=== PATIENT | male | born 1970 | race Caucasian/White ===

== ENCOUNTER → 2018-03-09 | Outpatient (CLI) | payer MEDICARE, OTHER ==
[2016-01-24 00:12] VITALS: BP 134/86
[~2018-03-09] MED LIST: ALBU8.5H6 IH; CYCL-331 PO; HYDR-2758 PO; HYDR-971 PO; KETO10TA PO; LEVO750T31 PO; LISI-334 PO; OXYC-323 PO; OXYC-328 PO; PRED20TA PO; SIMV20TA3 PO
--- NOTE | 2018-03-09 12:42 | RAD ---
2 views left knee 03/09/2018 2:00 AM Indication: LEG AND BACK PAIN Comparison: None Findings: There is no fracture or dislocation identified. Articular surfaces are uninterrupted. Soft tissues are unremarkable. Impression: No evidence of acute osseous abnormality
--- NOTE | 2018-03-09 12:43 | RAD ---
2 views left hip 03/09/2018 2:00 AM Indication: LEG AND BACK PAIN Comparison: None Findings: There is no fracture or dislocation identified. Articular surfaces are uninterrupted. Soft tissues are unremarkable. Impression: No evidence of acute osseous abnormality
--- NOTE | 2018-03-09 12:49 | RAD ---
4 views of the lumbar spine 03/09/2018 Indication: Back pain Comparison study: None Findings: Hypoplastic ribs appear to be present at the T 12 level. No evidence of acute fracture or alignment abnormality is identified. Vertebral body heights are preserved. There is diffuse disc space narrowing most prominent at L4-L5 and L5-S1. There is facet arthrosis at these levels. There is a grade 1 retrolisthesis of L4 on L5. Posterior projecting osteophyte noted. Findings could result in neural foraminal narrowing at L4-L5 and L5-S1. Given degree of facet arthrosis, some component of spinal stenosis may be present. Impression: No acute osseous abnormality is identified. Degenerative changes of the lumbar spine as described most prominent at L4-L5 and L5-S1. Consider MRI for further evaluation if clinical concern persists.
== END | disposition home or self-care (01) ==
LOC: PMG 12:05
PROVIDERS: ATTEND Physician Assistant
DX: M48.07 Spinal stenosis, lumbosacral region (principal); M25.78 Osteophyte, vertebrae; M25.562 Pain in left knee; M25.552 Pain in left hip
CPT/HCPCS: 72100; 73502; 73560

== ENCOUNTER 2018-03-10 18:44 | Emergency (ER) | payer MEDICARE, OTHER ==
[~2018-03-10] VITALS: Ht 185.4 cm; Wt 152.9 kg
[~2018-03-10 18:44] MED LIST changes: -CYCL-331 PO; -HYDR-2758 PO
--- NOTE | 2018-03-10 21:15 | RAD ---
Indication: Trauma. Lower back tenderness and pain. TECHNIQUE: CT lumbar spine without IV contrast with multiplanar reformats. COMPARISON: None FINDINGS: There are 5 lumbar type vertebral bodies. No compression deformities. Facet joints are in normal anatomic alignment. Moderate-sized anterior osteophytes are seen at L1-L2 and L3-L4. Segmental analysis: L1-L2: Mild circumferential disc bulge flattening anterior thecal sac. Mild bilateral facet arthropathy. No neuroforamina narrowing. L2-L3: Mild circumferential disc bulge flattening intrathecal sac. Mild bilateral facet arthropathy. No neuroforamina narrowing. L3-L4: Mild circumferential disc bulge flattening intrathecal sac. No facet arthropathy. Moderate right and left neuroforamina narrowing. L4-L5: Circumferential disc bulge with superimposed left paracentral disc protrusion narrowing spinal canal. Mild bilateral facet arthropathy. Severe left and moderate right neuroforamina narrowing. L5-S1: No disc bulge or herniation. Mild bilateral facet arthropathy. Severe left and moderate right neuroforamina narrowing. No acute fractures. Visualized soft tissues in the abdomen and pelvis are within normal limits. IMPRESSION: 1. No acute fractures. 2. Multilevel degenerative disc disease causing varying amount of neuroforaminal narrowing as described above. Electronically signed by: Rony Alvarez DO (03/10/2018 9:12 PM) [facility]
--- NOTE | 2018-03-10 21:40 | ED.ADGEN ---
Past History Past Medical History: COPD, Sinusitis, Other Past Surgical History: No Surgical History Smoking: Cigarettes Alcohol Use: None Drug Use: None Adult General HPI HPI Patient is a 47 yo male who states he missed his step at home and fell down 8 stairs. he fell to his right knee then to his back against the stair. he has known bulging disks and DDD. he denies being on narcotics. he was able to stand and walk to car. no leg weakness, no change in sensation Review of Systems Review of Systems Constitutional: Denies fever or chills [] Eyes: Denies change in visual acuity, redness, or eye pain [] HENT: Denies nasal congestion or sore throat [] Respiratory: Denies cough or shortness of breath [] Cardiovascular: No additional information not addressed in HPI [] GI: Denies abdominal pain, nausea, vomiting, bloody stools or diarrhea [] : Denies dysuria or hematuria [] Musculoskeletal:pain in lumbar spine and right knee Integument: Denies rash or skin lesions [] Neurologic: Denies headache, focal weakness or sensory changes [] Endocrine: Denies polyuria or polydipsia [] All other systems were reviewed and found to be within normal limits, except as documented in this note. Current Medications Current Medications Current Medications Medications (Trade) Dose Ordered Sig/Radha Start Time Stop Time Status Last Admin Dose Admin Fentanyl Citrate (Fentanyl 2ml Vial) 75 mcg 1X ONCE 03/10/18 20:15 03/10/18 20:16 DC 03/10/18 20:20 75 MCG Allergies Allergies Allergies Coded Allergies Type Severity Reaction Last Updated Verified Penicillins Allergy Severe anaphylaxis 12/05/15 Yes Physical Exam Physical Exam Constitutional: Well developed, well nourished, no acute distress, non-toxic appearance. [] HENT: Normocephalic, atraumatic, bilateral external ears normal, oropharynx moist, no oral exudates, nose normal. [] Eyes: PERRLA, EOMI, conjunctiva normal, no discharge. [] Neck: Normal range of motion, no tenderness, supple, no stridor. no midline pain Cardiovascular:Heart rate regular rhythm, no murmur [] Lungs & Thorax: Bilateral breath sounds clear to auscultation [] Abdomen: Bowel sounds normal, soft, no tenderness, no masses, no pulsatile masses. [] Skin: Warm, dry, no erythema, no rash. [] Back: tender along the entire lumbar spine. no cervical or thoracic pain Extremities: no edema, no swelling of right knee. no ecchymosis. full ROM of right knee. no crepitus with flexion/extension. 2/4 patellar reflexes. normal pedal pulses. cap refill <2 sec Neurologic: Alert and oriented X 3, normal motor function, normal sensory function, no focal deficits noted. [] Psychologic: Affect normal, judgement normal, mood normal. [] Current Patient Data Vital Signs Vital Signs Date Time Temp Pulse Resp B/P (MAP) Pulse Ox O2 Delivery O2 Flow Rate FiO2 03/10/18 20:20 20 96 Room Air EKG EKG [] Radiology/Procedures Radiology/Procedures [] Course & Med Decision Making Course & Med Decision Making Pertinent Labs and Imaging studies reviewed. (See chart for details) no fractures seen. he has a pcp that he is following for his back. he will see him in 2 weeks. he knows to return if trouble urinating or having bowel movements, weakness or decreased sensation. hydrocodone for pain and flexeril for relaxation [] Final Impression Final Impression muscle spasm due to fall[] Problems: Dragon Disclaimer Dragon Disclaimer This electronic medical record was generated, in whole or in part, using a voice recognition dictation system. Departure Time of Disposition: 21:39 Condition: STABLE Patient Instructions: Muscle Strain Additional Instructions: ice back and knee. hydrocodone for pain, ibuprofen for inflammation. flexeril for relaxation. return if symptoms worsen. see your doctor in 2 weeks Prescriptions hydrocodone and flexeril SHA DELACRUZ MD Mar 10, 2018 21:40
[2018-03-10] MEDS ORDERED: HYDR-2758 PO (21:42)
[2018-03-10] MEDS ORDERED: CYCL-331 PO (21:44)
[2018-03-10 21:50] VITALS: BP 130/76
--- NOTE | 2018-03-11 08:54 | RAD ---
3 views of each knee 03/10/2018 10:04 PM Indication: RIGHT KNEE PAIN AFTER FALL Comparison: None Findings: There is no fracture or dislocation identified. Articular surfaces are uninterrupted. Soft tissues are unremarkable. Impression: No evidence of acute osseous abnormality
== END 2018-03-10 21:50 | disposition home or self-care (01) ==
LOC: ER 18:44
DX: M62.830 Muscle spasm of back (principal); M25.561 Pain in right knee; J44.9 Chronic obstructive pulmonary disease, unspecified; F17.210 Nicotine dependence, cigarettes, uncomplicated; Z88.0 Allergy status to penicillin; W10.8XXA Fall (on) (from) other stairs and steps, initial encounter; Y93.89 Activity, other specified; Y99.8 Other external cause status; Y92.89 Other specified places as the place of occurrence of the external cause
CPT/HCPCS: 72131; 73562; 96372; 99284; J3010

== ENCOUNTER → 2018-04-05 | Outpatient (CLI) | payer MEDICARE, OTHER ==
[2018-03-10 21:50] VITALS: BP 130/76
[~2018-04-05] MED LIST changes: +0.9 % SODIUM CHLORIDE 10 ML VIAL ONE; +CYCL-331 PO; +DEXAMETHASONE SOD PHOS 4 MG/ML VIAL ONE; +HYDR-2758 PO; +IOHEXOL 300 MG/ML 50 ML VIAL. ONE; +LIDOCAINE 1% PF 30 ML VIAL. ONE
== END ==
LOC: SURG 14:40
PROVIDERS: ATTEND Anesthesiology
DX: M54.16 Radiculopathy, lumbar region (principal); J45.909 Unspecified asthma, uncomplicated; I10 Essential (primary) hypertension; I25.10 Atherosclerotic heart disease of native coronary artery without angina pectoris; K44.9 Diaphragmatic hernia without obstruction or gangrene; J44.9 Chronic obstructive pulmonary disease, unspecified; Z87.891 Personal history of nicotine dependence; Z87.39 Personal history of other diseases of the musculoskeletal system and connective tissue; Z86.73 Personal history of transient ischemic attack (TIA), and cerebral infarction without residual deficits; Z88.0 Allergy status to penicillin
CPT/HCPCS: 64483; 64484; J1100; J2001; Q9967; 64480

== ENCOUNTER 2018-05-06 21:35 | Emergency (ER) | payer MEDICARE, OTHER ==
[~2018-05-06] VITALS: Ht 185.4 cm; Wt 152.9 kg
[~2018-05-06 21:35] MED LIST changes: -0.9 % SODIUM CHLORIDE 10 ML VIAL ONE; -DEXAMETHASONE SOD PHOS 4 MG/ML VIAL ONE; -IOHEXOL 300 MG/ML 50 ML VIAL. ONE; -LIDOCAINE 1% PF 30 ML VIAL. ONE
--- NOTE | 2018-05-06 21:42 | ED.ADGEN ---
Past History Past Medical History: COPD, CVA, Sciatica, Sinusitis, Other Past Surgical History: No Surgical History, Other Smoking: Cigarettes Alcohol Use: None Drug Use: None Adult General Chief Complaint Chief Complaint ".. I have chronic low back pain... " [facility] HPI Patient is a 47 year old male who presents with above hx and complaints of exacerbation of his chronic back pain. Pt. denies any injury in the last couple days. Patient denies any fever or chills. Patient denies any IV drug use. Patient denies any history of immunosuppression. Patient denies any travel or specific ill contacts. Patient has been seen in pain clinic . Patient denies any problems with defecation or urination. Patient states that bending or lifting does exacerbate pain. Patient's pain follows the left sciatic nerve is previous exacerbations. Patient has had a myelogram with MRI which showed degenerative joint disease and disc degenerative changes. She does follow with Nany and Dr Saez. Pt. does continue to smoke. Review of Systems Review of Systems Constitutional: Denies fever or chills [] Eyes: Denies change in visual acuity, redness, or eye pain [] HENT: Denies nasal congestion or sore throat [] Respiratory: Denies cough or shortness of breath [] Cardiovascular: No additional information not addressed in HPI [] GI: Denies abdominal pain, nausea, vomiting, bloody stools or diarrhea [] : Denies dysuria or hematuria [ Integument: Denies rash or skin lesions [] Neurologic: Denies headache, focal weakness or sensory changes [] Endocrine: Denies polyuria or polydipsia [] All other systems were reviewed and found to be within normal limits, except as documented in this note. Family History Family History Non-contributory Current Medications Current Medications Current Medications Medications (Trade) Dose Ordered Sig/Radha Start Time Stop Time Status Last Admin Dose Admin Ketorolac Tromethamine (Toradol) 60 mg 1X ONCE 05/06/18 22:15 05/06/18 22:16 DC 05/06/18 22:11 60 MG Lorazepam (Ativan) 2 mg 1X ONCE 05/06/18 22:15 05/06/18 22:16 DC 05/06/18 22:08 2 MG Methylprednisolone Acetate (DEPO-Medrol IM) 40 mg 1X ONCE 05/06/18 22:15 05/06/18 22:16 DC 05/06/18 22:10 40 MG Morphine Sulfate (Morphine 10mg Syringe) 10 mg 1X ONCE 05/06/18 22:15 05/06/18 22:16 DC 05/06/18 22:15 10 MG Orphenadrine Citrate (Norflex) 60 mg 1X ONCE 05/06/18 22:15 05/06/18 22:16 DC 05/06/18 22:13 60 MG Allergies Allergies Allergies Coded Allergies Type Severity Reaction Last Updated Verified Penicillins Allergy Severe anaphylaxis 12/05/15 Yes Physical Exam Physical Exam Constitutional: Moderately acute distress, non-toxic appearance. [] HENT: Normocephalic, atraumatic, bilateral external ears normal, oropharynx moist, no oral exudates, nose normal. [] Eyes: PERRLA, EOMI, conjunctiva normal, no discharge. [] Neck: Normal range of motion, no tenderness, supple, no stridor. [] Cardiovascular:Heart rate regular rhythm, no murmur [] Lungs & Thorax: Bilateral breath sounds with scattered wheezing on auscultation [] Abdomen: Bowel sounds normal, soft, no tenderness, no masses, no pulsatile masses. Obese. Pt. decline rectal exam at this time. Skin: Warm, dry, no erythema, no rash. [] Back:Lumbar muscle tenderness, no CVA tenderness. [] Pain that follows the Lt. sciatic nerve. Note muscles spasms in lumbar. Extremities: No tenderness, no cyanosis, no clubbing, ROM intact, no edema. [] Neurologic: Alert and oriented X 3, No gross motor function deficits, no gross sensory function deficits no focal deficits noted. []No saddle loss. DTR + 2 patella and ankle. Psychologic: Affect anxious, judgement normal, mood normal. [] Current Patient Data Vital Signs Vital Signs Date Time Temp Pulse Resp B/P (MAP) Pulse Ox O2 Delivery O2 Flow Rate FiO2 05/06/18 22:15 74 16 126/70 (88) 97 Room Air 05/06/18 21:35 98.2 EKG EKG [] Radiology/Procedures Radiology/Procedures [] Course & Med Decision Making Course & Med Decision Making Pertinent Labs and Imaging studies reviewed. (See chart for details). Patient follow-up as scheduled with his pain clinic and primary. Patient take home meds as directed. Patient to use ice packs as needed. Patient to take Tylenol and ibuprofen for pain. For marked pain may take Vicoprofen up 4 times a day. Patient must follow-up. Patient encouraged to stop smoking. Patient return if any concerns. [] Final Impression Final Impression 1. Acute on Chronic Back pain[]-sciatica 2. COPD 3. Tobacco Abuse Dragon Disclaimer Dragon Disclaimer This electronic medical record was generated, in whole or in part, using a voice recognition dictation system. YEN SALAS MD May 06, 2018 21:42
[2018-05-06] MEDS ORDERED: HYDR-79 PO (22:00)
[2018-05-06 22:15] VITALS: BP 126/70
[2018-05-06] MEDS ORDERED: MORPHINE SULFATE 10 MG/ML SYRINGE. SQ ONE (22:15)
[2018-05-06] MEDS ORDERED: KETOROLAC 60 MG/2 ML VIAL. IM ONE (22:15)
[2018-05-06] MEDS ORDERED: ORPHENADRINE CITRATE 60 MG/2 ML VIAL. IM ONE (22:15)
[2018-05-06] MEDS ORDERED: LORazepam 2 MG/ML VIAL IM ONE (22:15)
[2018-05-06] MEDS ORDERED: methylPREDNISolone ACETATE 40 MG/ML VIAL. IM ONE (22:15)
== END 2018-05-06 22:19 | disposition home or self-care (01) ==
LOC: ER 21:35
DX: M54.42 Lumbago with sciatica, left side (principal); G89.29 Other chronic pain; J44.9 Chronic obstructive pulmonary disease, unspecified; F17.210 Nicotine dependence, cigarettes, uncomplicated; Z86.73 Personal history of transient ischemic attack (TIA), and cerebral infarction without residual deficits; Z88.0 Allergy status to penicillin
CPT/HCPCS: 96372; 99284; J1030; J1885; J2060; J2270; J2360

== ENCOUNTER → 2018-07-14 | Outpatient (CLI) | payer MEDICARE, OTHER ==
[~2018-07-14] MED LIST changes: +BUPIVACAINE MPF 0.25% 10 ML VIAL. ONE; +HYDR-79 PO; +LIDOCAINE 1% PF 30 ML VIAL. ONE
== END | disposition home or self-care (01) ==
LOC: SURG 08:18
PROVIDERS: ATTEND Anesthesiology Pain Medicine
DX: M79.1 Myalgia (principal); J44.9 Chronic obstructive pulmonary disease, unspecified; I25.10 Atherosclerotic heart disease of native coronary artery without angina pectoris; Z88.0 Allergy status to penicillin; F17.210 Nicotine dependence, cigarettes, uncomplicated; G47.30 Sleep apnea, unspecified; M19.90 Unspecified osteoarthritis, unspecified site; Z79.899 Other long term (current) drug therapy; Z86.73 Personal history of transient ischemic attack (TIA), and cerebral infarction without residual deficits
CPT/HCPCS: 20552; J2001; J3490

== ENCOUNTER → 2018-08-17 | Outpatient (CLI) | payer MEDICARE, OTHER ==
[~2018-08-17] MED LIST changes: -BUPIVACAINE MPF 0.25% 10 ML VIAL. ONE; -LIDOCAINE 1% PF 30 ML VIAL. ONE
== END | disposition home or self-care (01) ==
LOC: SURG 14:23
PROVIDERS: ATTEND Anesthesiology Pain Medicine
DX: M47.816 Spondylosis without myelopathy or radiculopathy, lumbar region (principal); M79.1 Myalgia; G89.4 Chronic pain syndrome; F11.90 Opioid use, unspecified, uncomplicated; I10 Essential (primary) hypertension; I25.10 Atherosclerotic heart disease of native coronary artery without angina pectoris; G47.33 Obstructive sleep apnea (adult) (pediatric); M19.90 Unspecified osteoarthritis, unspecified site; E78.5 Hyperlipidemia, unspecified; E78.00 Pure hypercholesterolemia, unspecified; J44.9 Chronic obstructive pulmonary disease, unspecified; Z86.73 Personal history of transient ischemic attack (TIA), and cerebral infarction without residual deficits; Z87.891 Personal history of nicotine dependence; Z87.39 Personal history of other diseases of the musculoskeletal system and connective tissue; Z88.0 Allergy status to penicillin
CPT/HCPCS: 99214

== ENCOUNTER → 2018-09-14 | Outpatient (CLI) | payer MEDICARE, OTHER ==
--- NOTE | 2018-09-14 15:19 | CARD ---
MR#: [id number] Date of Study: 09/14/2018 Ordering Physician: MIGUELITO JORGE, Referring Physician: MIGUELITO JORGE Tech: Amelia Velez RDCS APPROVED REPORT EXAM: Two-dimensional and M-mode echocardiogram with Doppler and color Doppler. Other Information Quality : Fair INDICATION Cardiac Disease: CAD RISK FACTORS Obesity 2D DIMENSIONS RVDd2.8 (2.9-3.5cm)Left Atrium(2D)3.8 (1.6-4.0cm) IVSd1.0 (0.7-1.1cm)Aortic Root(2D)3.3 (2.0-3.7cm) LVDd5.1 (3.9-5.9cm)LVOT Diameter2.2 (1.8-2.4cm) PWd1.1 (0.7-1.1cm)LVDs3.9 (2.5-4.0cm) FS (%) 25.0 %SV57.9 ml Aortic Valve AoV Peak Lewis.156.0cm/sAoV VTI22.8cm AO Peak GR.9.7mmHgLVOT Peak Lewis.120.7cm/s LVOT VTI 21.36cmAO Mean GR.4mmHg RICHELLE (VMAX)2.70sy0YTO (VTI)3.46cm2 Mitral Valve MV E Nzjqckpz71.7cm/sMV DECEL PEWU838ih MV A Rmhpyaoh17.6cm/sE/A Ratio1.4 Pulmonary Valve PV Peak Ezxjlbfv907.2cm/sPV Peak Grad.17mmHg Pulmonary Vein S1 Jkcsuhwx53.5cm/sD2 Dngxfsek15.1cm/s LEFT VENTRICLE The left ventricle is normal size. There is normal left ventricular wall thickness. Left ventricle sy stolic function is normal. The Ejection Fraction is 55-60%. There is normal LV segmental wall motion. Transmitral Doppler flow pattern is Grade II-pseudonormal filling dynamics. RIGHT VENTRICLE The right ventricle is normal size. The right ventricular systolic function is normal. ATRIA The left atrium size is normal. The right atrium size is normal. The interatrial septum is intact wit h no evidence for an atrial septal defect or patent foramen ovale as noted on 2-D or Doppler imaging. AORTIC VALVE The aortic valve is not well visualized but appears to be functioning normally by Doppler interrogati on. Doppler and Color Flow revealed no significant aortic regurgitation. There is no significant aort ic valvular stenosis. MITRAL VALVE The mitral valve is normal in structure and function. There is no evidence of mitral valve prolapse. There is no mitral valve stenosis. Doppler and Color Flow revealed no mitral valve regurgitation note d. TRICUSPID VALVE The tricuspid valve is normal in structure and function. Doppler and Color Flow revealed trace tricus pid valve regurgitation. There is no tricuspid valve stenosis. PULMONIC VALVE The pulmonic valve is not well visualized. Doppler and Color Flow revealed no pulmonic valvular regur gitation. There is no pulmonic valvular stenosis. GREAT VESSELS The aortic root is normal in size. The ascending aorta is not well seen. The IVC was not visualized. PERICARDIAL EFFUSION There is no evidence of significant pericardial effusion. Critical Notification Critical Value: No <Conclusion> The left ventricle is normal size. Left ventricle systolic function is normal. The Ejection Fraction is 55-60%. There is no significant aortic valvular stenosis. Doppler and Color Flow revealed no significant aortic regurgitation. Doppler and Color Flow revealed no mitral valve regurgitation noted. Doppler and Color Flow revealed trace tricuspid valve regurgitation. Signed by : Dheeraj Stevens MD Electronically Approved : 09/14/2018 15:19:12
== END | disposition home or self-care (01) ==
LOC: ECHO 10:11
PROVIDERS: ATTEND Internal Medicine Cardiovascular Disease
DX: I25.119 Atherosclerotic heart disease of native coronary artery with unspecified angina pectoris (principal); E66.8 Other obesity; F17.290 Nicotine dependence, other tobacco product, uncomplicated
CPT/HCPCS: 93306

== ENCOUNTER → 2018-09-23 | Outpatient (CLI) | payer MEDICARE, OTHER ==
[~2018-09-23] MED LIST changes: +0.9 % SODIUM CHLORIDE 10 ML VIAL ONE; +HYDR-3165 PO; -HYDR-971 PO; +IOHEXOL 300 MG/ML 50 ML VIAL. ONE; +LIDOCAINE 1% PF 2 ML VIAL. ONE; +methylPREDNISolone ACETATE 80 MG/ML VIAL. ONE
== END | disposition home or self-care (01) ==
LOC: SURG 12:04
PROVIDERS: ATTEND Anesthesiology Pain Medicine
DX: M47.26 Other spondylosis with radiculopathy, lumbar region (principal); Z88.0 Allergy status to penicillin; I10 Essential (primary) hypertension; I25.10 Atherosclerotic heart disease of native coronary artery without angina pectoris; J44.9 Chronic obstructive pulmonary disease, unspecified; G47.30 Sleep apnea, unspecified; M19.90 Unspecified osteoarthritis, unspecified site; Z79.82 Long term (current) use of aspirin; Z79.899 Other long term (current) drug therapy; F17.210 Nicotine dependence, cigarettes, uncomplicated; Z86.73 Personal history of transient ischemic attack (TIA), and cerebral infarction without residual deficits
CPT/HCPCS: 62323; J1040; Q9967

== ENCOUNTER → 2018-11-03 | Outpatient (CLI) | payer MEDICARE, OTHER ==
[~2018-11-03] MED LIST changes: +HYDR-1179 PO; +HYDR-2155 PO; -HYDR-2758 PO; -HYDR-79 PO; -LIDOCAINE 1% PF 2 ML VIAL. ONE; +LIDOCAINE 1% PF 30 ML VIAL. ONE; -OXYC-323 PO; -OXYC-328 PO; +OXYC1TAB15 PO; +OXYC1TAB22 PO
== END | disposition home or self-care (01) ==
LOC: SURG 10:43
PROVIDERS: ATTEND Anesthesiology Pain Medicine
DX: M47.26 Other spondylosis with radiculopathy, lumbar region (principal); I10 Essential (primary) hypertension; I25.10 Atherosclerotic heart disease of native coronary artery without angina pectoris; Z88.0 Allergy status to penicillin; G47.30 Sleep apnea, unspecified; J44.9 Chronic obstructive pulmonary disease, unspecified; F17.210 Nicotine dependence, cigarettes, uncomplicated; Z79.82 Long term (current) use of aspirin; Z79.899 Other long term (current) drug therapy; M19.90 Unspecified osteoarthritis, unspecified site; G89.4 Chronic pain syndrome; F11.90 Opioid use, unspecified, uncomplicated
CPT/HCPCS: 62323; J1040; J2001; Q9967

== ENCOUNTER → 2018-12-22 | Outpatient (CLI) | payer MEDICARE, MEDICAID | END | disposition home or self-care (01) | LOC: SURG 10:46 | PROVIDERS: ATTEND Anesthesiology Pain Medicine | DX: M47.26 Other spondylosis with radiculopathy, lumbar region (principal); I10 Essential (primary) hypertension; I25.10 Atherosclerotic heart disease of native coronary artery without angina pectoris; J44.9 Chronic obstructive pulmonary disease, unspecified; Z79.82 Long term (current) use of aspirin; Z79.899 Other long term (current) drug therapy; Z88.0 Allergy status to penicillin; G47.30 Sleep apnea, unspecified; M19.90 Unspecified osteoarthritis, unspecified site; F17.210 Nicotine dependence, cigarettes, uncomplicated; Z86.73 Personal history of transient ischemic attack (TIA), and cerebral infarction without residual deficits | CPT/HCPCS: 62323; J1040; J2001; Q9967 ==

== ENCOUNTER → 2019-01-19 | Outpatient (CLI) | payer MEDICARE, OTHER ==
[~2019-01-19] MED LIST changes: -0.9 % SODIUM CHLORIDE 10 ML VIAL ONE; -IOHEXOL 300 MG/ML 50 ML VIAL. ONE; -LIDOCAINE 1% PF 30 ML VIAL. ONE; -methylPREDNISolone ACETATE 80 MG/ML VIAL. ONE
== END | disposition home or self-care (01) ==
LOC: SURG 10:35
PROVIDERS: ATTEND Anesthesiology Pain Medicine
DX: M54.16 Radiculopathy, lumbar region (principal); G89.4 Chronic pain syndrome; F11.90 Opioid use, unspecified, uncomplicated; M19.90 Unspecified osteoarthritis, unspecified site; J44.9 Chronic obstructive pulmonary disease, unspecified; G47.30 Sleep apnea, unspecified; I10 Essential (primary) hypertension; K44.9 Diaphragmatic hernia without obstruction or gangrene
CPT/HCPCS: 99214

== ENCOUNTER → 2019-02-24 | Outpatient (CLI) | payer MEDICARE, OTHER | END | disposition home or self-care (01) | LOC: SURG 09:54 | PROVIDERS: ATTEND Anesthesiology Pain Medicine | DX: M54.16 Radiculopathy, lumbar region (principal); G89.4 Chronic pain syndrome; F11.90 Opioid use, unspecified, uncomplicated; M19.90 Unspecified osteoarthritis, unspecified site; J44.9 Chronic obstructive pulmonary disease, unspecified; G47.30 Sleep apnea, unspecified; I10 Essential (primary) hypertension; I25.10 Atherosclerotic heart disease of native coronary artery without angina pectoris; Z87.891 Personal history of nicotine dependence | CPT/HCPCS: 99214 ==

== ENCOUNTER → 2019-03-21 | Outpatient (CLI) | payer MEDICARE, OTHER ==
--- NOTE | 2019-03-21 16:18 | RAD ---
2 views of the left knee without comparison for pain in left knee, no known injury. FINDINGS: There is no fracture, dislocation, or acute osseous abnormality identified. Joints and soft tissues are unremarkable. No suprapatellar joint effusion. No significant degenerative changes. IMPRESSION: 1. No acute osseous abnormality of the left knee. Electronically signed by: Evaristo Medley MD (03/21/2019 4:15 PM) [id number]
== END | disposition home or self-care (01) ==
LOC: PMG 11:35
PROVIDERS: ATTEND Physician Assistant
DX: M25.562 Pain in left knee (principal)
CPT/HCPCS: 73560

== ENCOUNTER → 2019-03-31 | Outpatient (CLI) | payer MEDICARE, OTHER ==
[~2019-03-31] MED LIST changes: +0.9 % SODIUM CHLORIDE 10 ML VIAL ONE; +IOHEXOL 300 MG/ML 50 ML VIAL. ONE; +LIDOCAINE 1% PF 30 ML VIAL. ONE; +methylPREDNISolone ACETATE 80 MG/ML VIAL. ONE
== END | disposition home or self-care (01) ==
LOC: SURG 10:49
PROVIDERS: ATTEND Anesthesiology Pain Medicine
DX: M54.16 Radiculopathy, lumbar region (principal); J44.9 Chronic obstructive pulmonary disease, unspecified; F17.210 Nicotine dependence, cigarettes, uncomplicated; I10 Essential (primary) hypertension; I25.10 Atherosclerotic heart disease of native coronary artery without angina pectoris; Z86.73 Personal history of transient ischemic attack (TIA), and cerebral infarction without residual deficits
CPT/HCPCS: 62323; J1040; J2001; Q9967

== ENCOUNTER → 2019-05-26 | Outpatient (CLI) | payer MEDICARE, OTHER | LOC: SURG 13:38 | PROVIDERS: ATTEND Anesthesiology Pain Medicine | DX: M54.16 Radiculopathy, lumbar region (principal); J44.9 Chronic obstructive pulmonary disease, unspecified; I10 Essential (primary) hypertension; I25.10 Atherosclerotic heart disease of native coronary artery without angina pectoris; Z87.891 Personal history of nicotine dependence; Z86.73 Personal history of transient ischemic attack (TIA), and cerebral infarction without residual deficits; Z88.0 Allergy status to penicillin | CPT/HCPCS: 62323; J1040; J2001; Q9967 ==

== ENCOUNTER → 2019-06-13 | Outpatient (CLI) | payer MEDICARE, OTHER ==
[~2019-06-13] MED LIST changes: -0.9 % SODIUM CHLORIDE 10 ML VIAL ONE; -IOHEXOL 300 MG/ML 50 ML VIAL. ONE; -LIDOCAINE 1% PF 30 ML VIAL. ONE; -methylPREDNISolone ACETATE 80 MG/ML VIAL. ONE
--- NOTE | 2019-06-13 10:38 | RAD ---
AP and Lateral Views of the Chest 06/13/2019 12:00 AM Indication: Shortness of breath, COPD Comparison: Chest radiograph ever 2015 Findings: There is no focal consolidation or infiltrate identified. The cardiomediastinal silhouette is within normal limits. There is no evidence of pneumothorax or pleural effusion. No acute osseous abnormalities are identified. Impression: No evidence of acute cardiopulmonary process. Electronically signed by: Cyrus Jaquez MD (06/13/2019 10:35 AM) [facility]
== END | disposition home or self-care (01) ==
LOC: DXRAD 09:59
PROVIDERS: ATTEND Internal Medicine Pulmonary Disease
DX: J44.9 Chronic obstructive pulmonary disease, unspecified (principal); R06.02 Shortness of breath
CPT/HCPCS: 71046

== ENCOUNTER 2019-07-22 22:58 | Emergency (ER) | payer MEDICARE, OTHER ==
[~2019-07-22] VITALS: Ht 185.4 cm; Wt 158.8 kg
--- NOTE | 2019-07-22 23:34 | PHYS DOC ---
Past History Past Medical History: COPD, CVA, Sciatica, Sinusitis, Other Past Surgical History: No Surgical History, Other Smoking: Cigarettes Alcohol Use: None Drug Use: None Adult General Chief Complaint Chief Complaint: CHEST PAIN [facility] HPI 48-year-old male presents with chest pain. Patient states that he had chest pain that started this morning around 9 AM there was a sharp, 10 out of 10 pain. He did not come to the hospital at that time. He decided to see how ago. He has had pain throughout the day but is still a sharp sensation on the right side of his chest. It is now 6 out of 10. He denies shortness of breath or diaphoresis. Patient has a cardiac history. He said to minor heart attacks and was diagnosed with coronary artery disease. He had a stress test within the last year that he states they were watching some things, but no interventions were advised at that time. Patient denies fever or chills. He denies trauma or falls. He has high blood pressure, hyperlipidemia, obesity, and coronary artery disease. Review of Systems Review of Systems Constitutional: Denies fever or chills [] Eyes: Denies change in visual acuity, redness, or eye pain [] HENT: Denies nasal congestion or sore throat [] Respiratory: Denies cough or shortness of breath [] Cardiovascular: No additional information not addressed in HPI [] GI: Denies abdominal pain, nausea, vomiting, bloody stools or diarrhea [] : Denies dysuria or hematuria [] Musculoskeletal: Denies back pain or joint pain [] Integument: Denies rash or skin lesions [] Neurologic: Denies headache, focal weakness or sensory changes [] Endocrine: Denies polyuria or polydipsia [] All other systems were reviewed and found to be within normal limits, except as documented in this note. Allergies Allergies Allergies Coded Allergies Type Severity Reaction Last Updated Verified Penicillins Allergy Severe anaphylaxis 12/05/15 Yes Physical Exam Physical Exam Constitutional: Well developed, morbid obesity, well nourished, no acute distress, non-toxic appearance. [] HENT: Normocephalic, atraumatic, bilateral external ears normal, oropharynx moist, no oral exudates, nose normal. [] Eyes: PERRLA, EOMI, conjunctiva normal, no discharge. [] Neck: Normal range of motion, no tenderness, supple, no stridor. [] Cardiovascular:Heart rate regular rhythm, no murmur [] Lungs & Thorax: Bilateral breath sounds clear to auscultation [] Abdomen: Bowel sounds normal, soft, no tenderness, no masses, no pulsatile masses. [] Skin: Warm, dry, no erythema, no rash. [] Back: No tenderness, no CVA tenderness. [] Extremities: No tenderness, no cyanosis, no clubbing, ROM intact, no edema. [] Neurologic: Alert and oriented X 3, normal motor function, normal sensory function, no focal deficits noted. [] Psychologic: Affect normal, judgement normal, mood normal. [] EKG EKG Sinus rhythm, normal axis, no ST elevations or depressions.[] Radiology/Procedures Radiology/Procedures [] Impressions: Chest PA and lateral: Reason for examination: Chest pain. Comparison is made to previous study dated 06/13/2019. The heart size is normal. Mediastinum is unremarkable. Lung claros are clear. No acute bony abnormalities are seen. Impression: No acute cardiopulmonary disease. Electronically signed by: Catrachita Rodgers MD (07/22/2019 11:50 PM) [facility] DICTATED AND SIGNED BY: CATRACHITA RODGERS MD DATE: 07/22/19 [id number] CC: SAMANTA POTTER DO; EZRA CHAVES PA ~ Course & Med Decision Making Course & Med Decision Making Pertinent Labs and Imaging studies reviewed. (See chart for details) The patient's labs are remarkable for an elevated creatinine 1.6. Review of his chart shows a 1.3 1.5 is normal for him. The patient's troponin is negative. His EKG is unremarkable. His chest x-ray is negative for acute findings. His heart score is 4. The patient was given aspirin on arrival. He was also given 2 doses of nitroglycerin which has improved his pain significantly. The patient is willing to be admitted. As EMS arrived, the patient changed his mind and really would prefer to go home. I stressed to him the increased risk of this decision. He states verbal understanding. He is of sound mind to make this decision in my opinion. He will be discharged. If his symptoms return he will come back to the emergency room. Dragon Disclaimer Dragon Disclaimer This electronic medical record was generated, in whole or in part, using a voice recognition dictation system. The HEART Score for CP Pts HEART Score for Chest Pain: HEART Score for Chest Pain Response (Comments) Value History Moderately Suspicious 1 ECG Normal 0 Age >45 - < 65 1 Risk Factors >3 Risk Factors or Hx CAD 2 Troponin < Normal Limit 0 Total 4 Risk Factors: Risk Factors: DM, Current or recent (<one month) smoker, HTN, HLP, family history of CAD, obesity. Risk Scores: Score 0 - 3: 2.5% MACE over next 6 weeks - Discharge Home Score 4 - 6: 20.3% MACE over next 6 weeks - Admit for Clinical Observation Score 7 - 10: 72.7% MACE over next 6 weeks - Early Invasive Strategies Departure Departure: Impression: Primary Impression: Chest pain, precordial Disposition: 01 HOME, SELF-CARE Admitting Physician: Cipriano Grace Condition: GUARDED Referrals: EZRA CHAVES (PCP) Patient Instructions: Chest Pain (Nonspecific), [id number] SAMANTA POTTER DO Jul 22, 2019 23:34
[2019-07-22 23:44] LABS: BASO # 0.1 x10^3/uL (0.0-0.2); BASO % 2 % (0-3); EOS # 0.1 x10^3/uL (0.0-0.7); EOS % 2 % (0-3); HEMATOCRIT 44.8 % (39.0-53.0); HEMOGLOBIN 15.7 g/dL (13.0-17.5); LYMPH # 1.6 x10^3/uL (1.0-4.8); LYMPH % 20 % (24-48); MEAN CORPUSCULAR HEMOGLOBIN 31 pg (25-35); MEAN CORPUSCULAR HGB CONC 35 g/dL (31-37); MEAN CORPUSCULAR VOLUME 88 fL (79-100); MONO # 0.4 x10^3/uL (0.0-1.1); MONO % 5 % (0-9); NEUT # 5.9 x10^3uL (1.8-7.7); NEUT % 72 % (31-73); PLATELET COUNT 194 x10^3/uL (140-400); RED BLOOD COUNT 5.12 x10^6/uL (4.30-5.70); RED CELL DISTRIBUTION WIDTH 13.9 % (11.5-14.5); WHITE BLOOD COUNT 8.1 x10^3/uL (4.0-11.0)
[2019-07-22] MEDS ORDERED: ASPIRIN 81 MG TAB.CHEW PO ONE (23:45)
[2019-07-22] MEDS: NITROGLYCERIN SUBLINGUAL 0.4 MG BOTTLE OF 25. SL PRN (23:45)
--- NOTE | 2019-07-22 23:54 | RAD ---
Chest PA and lateral: Reason for examination: Chest pain. Comparison is made to previous study dated 06/13/2019. The heart size is normal. Mediastinum is unremarkable. Lung claros are clear. No acute bony abnormalities are seen. Impression: No acute cardiopulmonary disease. Electronically signed by: Catrahcita Kenyon MD (07/22/2019 11:50 PM) [facility]
[2019-07-22 23:57] LABS: ALBUMIN 3.5 g/dL (3.4-5.0); ALBUMIN/GLOBULIN RATIO 1.1 (1.0-1.7); CALCIUM 8.1 mg/dL (8.5-10.1); CREATININE 1.6 mg/dL (0.7-1.3); GFR 46.4; POTASSIUM 3.7 mmol/L (3.5-5.1); TOTAL BILIRUBIN 0.5 mg/dL (0.2-1.0); TOTAL PROTEIN 6.6 g/dL (6.4-8.2)
[2019-07-23] MEDS: NITROGLYCERIN SUBLINGUAL 0.4 MG BOTTLE OF 25. SL PRN (00:01)
[2019-07-23 01:00] VITALS: BP 116/70
[2019-07-23] MEDS ORDERED: NITROGLYCERIN SUBLINGUAL 0.4 MG BOTTLE OF 25. SL PRN (01:15)
--- NOTE | 2019-07-23 10:26 | EKG ---
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
== END 2019-07-23 01:44 | disposition home or self-care (01) ==
LOC: ER 22:58 → UNDOADMIN 07-23 00:34 → 1 SOUTH 07-23 00:34 → ER 07-23 01:44
DX: R07.2 Precordial pain (principal); J44.9 Chronic obstructive pulmonary disease, unspecified; F17.210 Nicotine dependence, cigarettes, uncomplicated; Z86.73 Personal history of transient ischemic attack (TIA), and cerebral infarction without residual deficits; Z88.0 Allergy status to penicillin
CPT/HCPCS: 36415; 71046; 80053; 84484; 85025; 93005; 99285-25

== ENCOUNTER 2019-09-01 10:21 | Emergency (ER) | payer MEDICARE, OTHER ==
[~2019-09-01] VITALS: Ht 185.4 cm; Wt 158.8 kg
[~2019-09-01 10:21] MED LIST changes: +SIMV20TA18 PO; -SIMV20TA3 PO
[2019-09-01] MEDS ORDERED: IV NORMAL SALINE 1,000ML 1,000 ML IV SCH (10:46)
[2019-09-01] MEDS ORDERED: IOHEXOL 240 MG/ML 50ML VIAL. ONE (10:51)
[2019-09-01] MEDS ORDERED: IPRATRPIUM/ALBUTEROL 0.5/2.5MG 3 ML NEBU. NEB ONE (11:00)
--- NOTE | 2019-09-01 11:01 | PHYS DOC ---
Past History Past Medical History: CAD, GERD, Hypertension, [place] Past Surgical History: No Surgical History Smoking: Cigarettes Alcohol Use: Sober Drug Use: None Adult General Chief Complaint Chief Complaint: ABDOMINAL PAIN HPI HPI Patient is a 48-year-old male presents with upper abdominal pain that feels like it is sharp and piercing through him. This started approximately 3:00 this morning with some diarrhea, no blood in the stool. No travel or unusual foods. Pain is moderate to severe. Pain is radiating through to his back. No radiation down his legs. Nothing makes this discomfort any better or worse. Yesterday he was having episodes of fever and chills and soaked in a warm tub for this which did the symptoms. No nausea or vomiting. He has some shortness of breath that is mild but worse than his usual baseline.[] Review of Systems Review of Systems Constitutional: See history of present illness[] Eyes: Denies change in visual acuity, redness, or eye pain [] HENT: Denies nasal congestion or sore throat [] Respiratory: Denies cough or shortness of breath [] Cardiovascular: No additional information not addressed in HPI, no palpitations, no worsening of his upper abdominal pain with exertion. [] GI: See history of present illness[] : Denies dysuria or hematuria [] Musculoskeletal: Denies back pain or joint pain [] Integument: Denies rash or skin lesions [] Neurologic: Denies headache, focal weakness or sensory changes [] Endocrine: Denies polyuria or polydipsia [] All other systems were reviewed and found to be within normal limits, except as documented in this note. Current Medications Current Medications Current Medications Medications (Trade) Dose Ordered Sig/Radha Start Time Stop Time Status Last Admin Dose Admin Hyoscyamine (Anaspaz) 0.125 mg 1X ONCE 09/01/19 11:10 09/01/19 11:11 Iohexol (Omnipaque 240 Mg/ml) 50 ml STK-MED ONCE 09/01/19 10:51 09/01/19 10:51 DC Prochlorperazine Edisylate (Compazine) 5 mg 1X ONCE 09/01/19 11:10 09/01/19 11:11 Sodium Chloride 1,000 ml @ 1,000 mls/hr Q1H 09/01/19 10:46 09/01/19 11:45 Allergies Allergies Allergies Coded Allergies Type Severity Reaction Last Updated Verified Penicillins Allergy Severe anaphylaxis 12/05/15 Yes Physical Exam Physical Exam Constitutional: Well developed, well nourished, no acute distress, non-toxic appearance. [] HENT: Normocephalic, atraumatic, bilateral external ears normal, oropharynx moist, no oral exudates, nose normal. [] Eyes: PERRLA, EOMI, conjunctiva normal, no discharge. [] Neck: Normal range of motion, no tenderness, supple, no stridor. [] Cardiovascular:Heart rate regular rhythm, no murmur [] Lungs & Thorax: Bilateral breath sounds with expiratory wheezes.[] Abdomen: Bowel sounds normal, soft, tenderness in the epigastric region that re- creates his discomfort. No rebound, no guarding, no rigidity, no caput medusa, no masses, no pulsatile masses. [] Skin: Warm, dry, no erythema, no rash. [] Back: No tenderness, no CVA tenderness. [] Extremities: No tenderness, no cyanosis, no clubbing, ROM intact, no edema. [] Neurologic: Alert and oriented X 3, normal motor function, normal sensory function, no focal deficits noted. [] Psychologic: Affect normal, judgement normal, mood normal. [] EKG EKG EKG shows a sinus rhythm at 86 bpm, normal axis, QTC of 405 ms, no ST elevation. Interpreted by me at 1055. No acute changes when compared with EKG of 9.[] Radiology/Procedures Radiology/Procedures PROCEDURE: CT ABD PELV W/ORAL&IV CONTRAST CT scan of the abdomen and pelvis with contrast 09/01/2019 CLINICAL HISTORY: Upper abdominal pain and diarrhea. TECHNIQUE: After the oral and intravenous administration of contrast, contiguous, 5 mm axial sections were obtained through the abdomen and pelvis. 75 cc of Omnipaque 300 were administered intravenously during this examination. One or more of the following individualized dose reduction techniques were utilized for this study: 1. Automated exposure control. 2. Adjustment of the mA and/or kV according to patient size. 3. Use of iterative reconstruction technique. FINDINGS: Comparison study is dated 02/26/2015. Images through the lung bases are within normal limits. The liver parenchyma has a decreased attenuation consistent with fatty infiltration. The liver is mildly enlarged measuring 20 cm in length. The spleen is mildly enlarged measuring 17.4 cm in length. Fatty replacement of the pancreas is noted. The adrenal glands and kidneys are within normal limits. Atherosclerotic calcification of the abdominal aorta is seen. The abdominal aorta tapers normally. The gallbladder is contracted. No free fluid or free air is seen within the abdomen. There is no evidence of bowel obstruction. The appendix is well-visualized and is within normal limits Images through the pelvis demonstrate the urinary bladder to be contracted. No free fluid is seen. No inflammatory changes are seen throughout the colon. No abnormal fluid collection is seen. Degenerative changes are seen involving the lower thoracic and throughout the lumbar spine along with both hips. IMPRESSION: No acute abnormality is seen. PROCEDURE: PORTABLE CHEST 1V EXAM: Chest, single view. HISTORY: Shortness of breath. COMPARISON: 07/22/2019 FINDINGS: A frontal view of the chest obtained. There is no infiltrate, pleural effusion or pneumothorax. The heart is normal in size. There is suspected bilateral lateral pleural thickening due to extrapleural fat. IMPRESSION: No acute pulmonary finding. [] Course & Med Decision Making Course & Med Decision Making Pertinent Labs and Imaging studies reviewed. (See chart for details) ED course: Patient arrived, was placed in bed, and tolerated exam well. He was given a breathing treatment which improved his breath sounds. He was transported to and from radiology with any complications. After the return of the laboratory findings, which were delayed due to problems with the laboratory machine, and the imaging findings, these were discussed with the patient who voiced understanding. All questions were answered. He was feeling better. He was discharged in improved condition. Medical decision making: There is no evidence of pancreatitis, obstruction, cholecystitis, appendicitis, perforation, nor acute coronary syndrome. Believe this to be a gastrointestinal illness along with a bronchitis type of picture. There is no evidence of systemic toxicity. No evidence of hypoxia.[] Dragon Disclaimer Dragon Disclaimer This electronic medical record was generated, in whole or in part, using a voice recognition dictation system. Departure Departure: Impression: Primary Impression: COPD with acute exacerbation Additional Impressions: Abdominal pain Diarrhea Disposition: HOME, SELF-CARE Condition: IMPROVED Referrals: EZRA CHAVES (PCP) Follow-up in 2 days Patient Instructions: Abdominal Pain, Chronic Obstructive Pulmonary Disease Exacerbation, Diarrhea, Diet for Diarrhea, Adult Additional Instructions: Drink plenty of fluids, frequent small sips. No fatty foods, no milk, and no pepper for the next 48 hours. For the next 48 hours eat a diet rich in carbohydrates with foods such as bananas, rice, applesauce, and toast. Stop smoking! Follow-up with your regular doctor in 2 days. Return to the ER if worsening pain, unable to tolerate liquids, or any other concerns. Scripts Prednisone (PREDNISONE) 50 Mg Tablet 1 TAB PO DAILY for INFLAMMATION, #5 TAB Prov: MANJIT ENCARNACION DO 09/01/19 Meloxicam (MELOXICAM) 7.5 Mg Tablet 7.5 MG PO DAILY for PAIN, #20 TAB Prov: MANJIT ENCARNACION DO 09/01/19 Hyoscyamine Sulfate (LEVSIN) 0.125 Mg Tablet 0.125 MG PO QID for abdominal pain/cramping, #30 TAB Prov: MANJIT ENCARNACION DO 09/01/19 Problem Qualifiers Additional Impressions: Abdominal pain Abdominal location: epigastric Qualified Codes: R10.13 - Epigastric pain Diarrhea Diarrhea type: unspecified type Qualified Codes: R19.7 - Diarrhea, unspecified MANJIT ENCARNACION DO Sep 01, 2019 11:01
[2019-09-01] MEDS ORDERED: HYOSCYAMINE 0.125 MG TAB.RAPDIS PO ONE (11:10)
[2019-09-01] MEDS ORDERED: PROCHLORPERAZINE 10 MG/2 ML VIAL. IV ONE (11:10)
[2019-09-01 11:21] LABS: BASO # 0.1 x10^3/uL (0.0-0.2); BASO % 1 % (0-3); EOS # 0.1 x10^3/uL (0.0-0.7); EOS % 1 % (0-3); HEMATOCRIT 51.5 % (39.0-53.0); HEMOGLOBIN 17.6 g/dL (13.0-17.5); LYMPH % 10 % (24-48); MEAN CORPUSCULAR HEMOGLOBIN 30 pg (25-35); MEAN CORPUSCULAR HGB CONC 34 g/dL (31-37); MEAN CORPUSCULAR VOLUME 88 fL (79-100); MONO # 0.4 x10^3/uL (0.0-1.1); MONO % 4 % (0-9); NEUT # 8.5 x10^3uL (1.8-7.7); NEUT % 85 % (31-73); PLATELET COUNT 237 x10^3/uL (140-400); RED BLOOD COUNT 5.83 x10^6/uL (4.30-5.70); RED CELL DISTRIBUTION WIDTH 14.4 % (11.5-14.5)
--- NOTE | 2019-09-01 11:41 | EKG ---
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
[2019-09-01] MEDS ORDERED: IOHEXOL 300 MG/ML 75 ML VIAL. IV ONE (12:30)
[2019-09-01 12:34] VITALS: BP 144/72
[2019-09-01 12:44] LABS: COLOR,URINE YELLOW
--- NOTE | 2019-09-01 12:44 | RAD ---
EXAM: Chest, single view. HISTORY: Shortness of breath. COMPARISON: 07/22/2019 FINDINGS: A frontal view of the chest obtained. There is no infiltrate, pleural effusion or pneumothorax. The heart is normal in size. There is suspected bilateral lateral pleural thickening due to extrapleural fat. IMPRESSION: No acute pulmonary finding. Electronically signed by: Domonique Rubalcava MD (09/01/2019 12:42 PM) [facility]
[2019-09-01 12:45] LABS: BACTERIA,URINE 0 /HPF (0-FEW); BILIRUBIN,URINE NEG (NEG); CLARITY,URINE CLEAR; GLUCOSE,URINE NEG (NEG); NITRITE,URINE NEG (NEG); RBC,URINE 0 /HPF (0-2); SQUAMOUS EPITHELIAL CELL,UR OCC /LPF; UROBILINOGEN,URINE 0.2 mg/dL (0.2 mg/dL); WBC,URINE 0 /HPF (0-4)
--- NOTE | 2019-09-01 12:51 | RAD ---
CT scan of the abdomen and pelvis with contrast 09/01/2019 CLINICAL HISTORY: Upper abdominal pain and diarrhea. TECHNIQUE: After the oral and intravenous administration of contrast, contiguous, 5 mm axial sections were obtained through the abdomen and pelvis. 75 cc of Omnipaque 300 were administered intravenously during this examination. One or more of the following individualized dose reduction techniques were utilized for this study: 1. Automated exposure control. 2. Adjustment of the mA and/or kV according to patient size. 3. Use of iterative reconstruction technique. FINDINGS: Comparison study is dated 02/26/2015. Images through the lung bases are within normal limits. The liver parenchyma has a decreased attenuation consistent with fatty infiltration. The liver is mildly enlarged measuring 20 cm in length. The spleen is mildly enlarged measuring 17.4 cm in length. Fatty replacement of the pancreas is noted. The adrenal glands and kidneys are within normal limits. Atherosclerotic calcification of the abdominal aorta is seen. The abdominal aorta tapers normally. The gallbladder is contracted. No free fluid or free air is seen within the abdomen. There is no evidence of bowel obstruction. The appendix is well-visualized and is within normal limits Images through the pelvis demonstrate the urinary bladder to be contracted. No free fluid is seen. No inflammatory changes are seen throughout the colon. No abnormal fluid collection is seen. Degenerative changes are seen involving the lower thoracic and throughout the lumbar spine along with both hips. IMPRESSION: No acute abnormality is seen. Electronically signed by: Alex Chahal MD (09/01/2019 12:48 PM) [id number]
[2019-09-01 13:23] LABS: INFLUENZA A PATIENT NEGATIVE (NEGATIVE); INFLUENZA B PATIENT NEGATIVE (NEGATIVE)
[2019-09-01 13:37] LABS: BARBITURATES NEG (NEG); BENZODIAZEPINES NEG (NEG); CANNABINOIDS NEG (NEG); COCAINE NEG (NEG); METHADONE NEG (NEG); OPIATES POS (NEG); PHENCYCLIDINE NEG (NEG)
[2019-09-01 13:39] LABS: AMPHETAMINE/METHAMPHETAMINE NEG (NEG)
[2019-09-01 13:58] LABS: ALBUMIN 4.3 g/dL (3.4-5.0); ALBUMIN/GLOBULIN RATIO 1.2 (1.0-1.7); CALCIUM 9.5 mg/dL (8.5-10.1); TOTAL PROTEIN 7.8 g/dL (6.4-8.2)
[2019-09-01 13:59] LABS: CREATININE 1.3 mg/dL (0.7-1.3); GFR 58.9; POTASSIUM 4.3 mmol/L (3.5-5.1); TOTAL BILIRUBIN 0.9 mg/dL (0.2-1.0)
[2019-09-01] MEDS ORDERED: PRED50TA PO (15:06)
[2019-09-01] MEDS ORDERED: HYOS0.1264 PO (15:06)
[2019-09-01] MEDS ORDERED: MELO7.5T29 PO (15:06)
[2019-09-26] MEDS ORDERED: FLUT1DIS IH (12:30)
[2019-09-26] MEDS ORDERED: ASPI81TA50 PO (12:30)
[2019-09-26] MEDS ORDERED: ALBU2.5V8 IH (12:30)
[2019-09-26] MEDS ORDERED: OMEP20CA10 PO (12:32)
[2019-09-26] MEDS ORDERED: FURO-68 PO (12:32)
[2019-09-26] MEDS ORDERED: LISI40TA PO (12:32)
[2019-09-26] MEDS ORDERED: BACL10TA PO (12:32)
[2019-09-26] MEDS ORDERED: HYDR-2765 PO (12:32)
== END 2019-09-01 15:10 | disposition home or self-care (01) ==
LOC: ER 10:21
DX: J44.1 Chronic obstructive pulmonary disease with (acute) exacerbation (principal); R19.7 Diarrhea, unspecified; I25.10 Atherosclerotic heart disease of native coronary artery without angina pectoris; K21.9 Gastro-esophageal reflux disease without esophagitis; I10 Essential (primary) hypertension; I25.2 Old myocardial infarction; F17.210 Nicotine dependence, cigarettes, uncomplicated; Z88.0 Allergy status to penicillin
CPT/HCPCS: 36415; 71045; 74177; 80053; 80307; 81001; 83690; 83880; 84484; 85025; 87804; 93005; 94640; 96361; 96374; 99285; J0780; J7620; Q9967; J7030

== ENCOUNTER → 2019-09-28 | Outpatient (CLI) | payer MEDICARE, OTHER ==
[~2019-09-28] MED LIST changes: +0.9 % SODIUM CHLORIDE 10 ML VIAL ONE; +ALBU2.5V8 IH; +ASPI81TA50 PO; +BACL10TA PO; +FLUT1DIS IH; +FURO-68 PO; +HYDR-2765 PO; +HYOS0.1264 PO; +IOHEXOL 300 MG/ML 50 ML VIAL. ONE; +LIDOCAINE 1% PF 30 ML VIAL. ONE; +LISI40TA PO; +MELO7.5T29 PO; +OMEP20CA10 PO; +PRED50TA PO; +methylPREDNISolone ACETATE 80 MG/ML VIAL. ONE
[2019-09-28 12:25] VITALS: BP 161/89
== END ==
LOC: SURG 11:00
PROVIDERS: ATTEND Anesthesiology Pain Medicine
DX: M54.16 Radiculopathy, lumbar region (principal); J44.9 Chronic obstructive pulmonary disease, unspecified; I25.10 Atherosclerotic heart disease of native coronary artery without angina pectoris; Z87.891 Personal history of nicotine dependence
CPT/HCPCS: 62323; J1040; J2001; Q9967

== ENCOUNTER → 2019-11-01 | Outpatient (CLI) | payer MEDICARE, OTHER ==
[~2019-11-01] MED LIST changes: -0.9 % SODIUM CHLORIDE 10 ML VIAL ONE; -IOHEXOL 300 MG/ML 50 ML VIAL. ONE; -LIDOCAINE 1% PF 30 ML VIAL. ONE; +OMEP-229 PO; -OMEP20CA10 PO; +Oxygen INH; -methylPREDNISolone ACETATE 80 MG/ML VIAL. ONE
[2019-11-01 12:11] VITALS: BP 136/87
== END | disposition home or self-care (01) ==
LOC: SURG 11:39
PROVIDERS: ATTEND Anesthesiology Pain Medicine
DX: M54.16 Radiculopathy, lumbar region (principal); M54.5 Low back pain; G89.4 Chronic pain syndrome; E66.9 Obesity, unspecified; F11.90 Opioid use, unspecified, uncomplicated; I25.10 Atherosclerotic heart disease of native coronary artery without angina pectoris; I10 Essential (primary) hypertension; M19.90 Unspecified osteoarthritis, unspecified site; J44.9 Chronic obstructive pulmonary disease, unspecified; F17.200 Nicotine dependence, unspecified, uncomplicated; Z79.899 Other long term (current) drug therapy
CPT/HCPCS: 99214

== ENCOUNTER → 2019-12-28 | Outpatient (CLI) | payer MEDICARE, OTHER ==
[~2019-12-28] MED LIST changes: +0.9 % SODIUM CHLORIDE 10 ML VIAL ONE; +IOHEXOL 300 MG/ML 50 ML VIAL. ONE; +LIDOCAINE 1% PF 30 ML VIAL. ONE; -OMEP-229 PO; +OMEP20CA16 PO; +methylPREDNISolone ACETATE 80 MG/ML VIAL. ONE
[2019-12-28 12:15] VITALS: BP 147/88
== END | disposition home or self-care (01) ==
LOC: SURG 11:09
PROVIDERS: ATTEND Anesthesiology Pain Medicine
DX: M54.16 Radiculopathy, lumbar region (principal); J44.9 Chronic obstructive pulmonary disease, unspecified; I10 Essential (primary) hypertension; I25.10 Atherosclerotic heart disease of native coronary artery without angina pectoris; K44.9 Diaphragmatic hernia without obstruction or gangrene; F17.210 Nicotine dependence, cigarettes, uncomplicated; G89.4 Chronic pain syndrome; F11.90 Opioid use, unspecified, uncomplicated; Z79.82 Long term (current) use of aspirin; Z87.39 Personal history of other diseases of the musculoskeletal system and connective tissue
CPT/HCPCS: 62323; J1040; J2001; Q9967

== ENCOUNTER → 2020-01-08 | Outpatient (CLI) | payer MEDICARE, OTHER ==
[2019-12-28 12:15] VITALS: BP 147/88
[~2020-01-08] MED LIST changes: -0.9 % SODIUM CHLORIDE 10 ML VIAL ONE; -IOHEXOL 300 MG/ML 50 ML VIAL. ONE; -LIDOCAINE 1% PF 30 ML VIAL. ONE; -methylPREDNISolone ACETATE 80 MG/ML VIAL. ONE
--- NOTE | 2020-01-08 16:02 | RAD ---
Sonography of the chest/abdomen Clinical indications: Palpable lump of the upper abdominal wall and lower chest on the right side. FINDINGS: High-resolution sonography of the palpable lump was performed. In this area, there is subcutaneous hyperechoic elliptical solid mass without abnormal internal color Doppler flow. This mass measures 3.4 cm longitudinally and 1.3 cm in AP dimension and 5.2 cm transversely. This is consistent with a lipoma. IMPRESSION: Palpable lump corresponds to a solid hyperechoic mass consistent with a lipoma. The lipomatous nature of this mass may be confirmed with a limited CT study through this area if clinically needed. Otherwise clinical follow-up is needed with regard to any growth in size since a sarcoma cannot be excluded. Electronically signed by: Adonis Weldon MD (01/08/2020 3:58 PM) [facility]
== END | disposition home or self-care (01) ==
LOC: US 10:12
PROVIDERS: ATTEND Surgery
DX: D17.1 Benign lipomatous neoplasm of skin and subcutaneous tissue of trunk (principal)
CPT/HCPCS: 76604

== ENCOUNTER → 2020-02-01 | Outpatient (CLI) | payer MEDICARE, OTHER ==
[2020-02-01 14:16] VITALS: BP 174/97
== END ==
LOC: SURG 13:58
PROVIDERS: ATTEND Anesthesiology Pain Medicine
DX: M54.16 Radiculopathy, lumbar region (principal); M54.5 Low back pain; M54.9 Dorsalgia, unspecified; G89.4 Chronic pain syndrome; E66.9 Obesity, unspecified; F11.90 Opioid use, unspecified, uncomplicated
CPT/HCPCS: 99214; G0463

== ENCOUNTER → 2020-06-06 | Outpatient (CLI) | payer MEDICARE, OTHER ==
[2020-02-01 14:16] VITALS: BP 174/97
--- NOTE | 2020-06-06 15:46 | RAD ---
EXAM: CERVICAL SPINE 2-3V. HISTORY: Neck pain. COMPARISON: None. FINDINGS: Mild straightening of the normal cervical lordosis is likely positional. There is no prevertebral soft tissue swelling. No fractures are identified. Degenerative disc disease is moderate at C6-7 and mild at C5-6. IMPRESSION: 1. Degenerative disc disease is mild at C5-6 and moderate at C6-7. Electronically signed by: Jeramie Medley MD (06/06/2020 3:43 PM) [id number]
== END ==
LOC: DXRAD 11:44
PROVIDERS: ATTEND Psychiatry & Neurology Neurology
DX: M50.122 Cervical disc disorder at C5-C6 level with radiculopathy (principal)
CPT/HCPCS: 72040

== ENCOUNTER → 2020-06-18 | Outpatient (CLI) | payer MEDICARE, OTHER ==
[2020-02-01 14:16] VITALS: BP 174/97
--- NOTE | 2020-06-18 15:52 | CARD ---
MR#: [id number] Date of Study: 06/18/2020 Ordering Physician: MIGUELITO JORGE, Referring Physician: MIGUELITO JORGE Tech: Amelia Velez RDCS APPROVED REPORT EXAM: Two-dimensional and M-mode echocardiogram with Doppler and color Doppler. Other Information Quality : Fair INDICATION Cardiac Disease: CAD RISK FACTORS Obesity Smoking 2D DIMENSIONS RVDd2.4 (2.9-3.5cm)Left Atrium(2D)3.4 (1.6-4.0cm) IVSd1.1 (0.7-1.1cm)Aortic Root(2D)3.4 (2.0-3.7cm) LVDd5.6 (3.9-5.9cm)LVOT Diameter2.2 (1.8-2.4cm) PWd1.1 (0.7-1.1cm)LVDs4.0 (2.5-4.0cm) FS (%) 27.4 %SV80.1 ml LVEF(%)52.7 (>50%) Aortic Valve AoV Peak Lewis.122.9cm/sAoV VTI20.6cm AO Peak GR.6.0mmHgLVOT Peak Lewis.137.3cm/s LVOT VTI 22.45cmAO Mean GR.4mmHg RICHELLE (VMAX)4.96rb4LHD (VTI)4.29cm2 Mitral Valve MV E Reirvdcp02.9cm/sMV DECEL UGIB147ys MV A Kxsdpxbd43.4cm/sE/A Ratio1.0 Tricuspid Valve TR P. Jbguyakp042aj/sRAP TSGEECNA0vcVb TR Peak Gr.31mgXvAFIL29alGj Pulmonary Vein S1 Vnifxomc84.8cm/sD2 Cwbgsfiw39.5cm/s LEFT VENTRICLE The left ventricle is normal size. There is normal left ventricular wall thickness. Left ventricle sy stolic function is normal. The Ejection Fraction is 50-55%. There is normal LV segmental wall motion. The left ventricular diastolic function and filling is normal for age. RIGHT VENTRICLE The right ventricle is normal size. The right ventricular systolic function is normal. ATRIA The left atrium size is normal. The right atrium size is normal. The interatrial septum is intact wit h no evidence for an atrial septal defect or patent foramen ovale as noted on 2-D or Doppler imaging. AORTIC VALVE The aortic valve is not well visualized. Doppler and Color Flow revealed no significant aortic regurg itation. There is no significant aortic valvular stenosis. MITRAL VALVE The mitral valve is normal in structure and function. There is no evidence of mitral valve prolapse. There is no mitral valve stenosis. Doppler and Color Flow revealed no mitral valve regurgitation note d. TRICUSPID VALVE The tricuspid valve is normal in structure and function. Doppler and Color Flow revealed trace tricus pid regurgitation. The PA pressure was estimated at 21 mmHg. There is no tricuspid valve stenosis. PULMONIC VALVE The pulmonic valve is not well visualized. Doppler and Color Flow revealed no pulmonic valvular regur gitation. There is no pulmonic valvular stenosis. GREAT VESSELS The aortic root is normal in size. The ascending aorta is not well seen. The IVC was not visualized. PERICARDIAL EFFUSION There is no evidence of significant pericardial effusion. Critical Notification Critical Value: No <Conclusion> The left ventricle is normal size. Left ventricle systolic function is normal. The Ejection Fraction is 50-55%. There is normal LV segmental wall motion. Doppler and Color Flow revealed no significant aortic regurgitation. There is no significant aortic valvular stenosis. Doppler and Color Flow revealed no mitral valve regurgitation noted. Doppler and Color Flow revealed trace tricuspid regurgitation. The PA pressure was estimated at 21 mmHg. Signed by : Dheeraj Stevens MD Electronically Approved : 06/18/2020 15:52:38
== END | disposition home or self-care (01) ==
LOC: ECHO 14:18
PROVIDERS: ATTEND Internal Medicine Cardiovascular Disease
DX: I25.119 Atherosclerotic heart disease of native coronary artery with unspecified angina pectoris (principal)
CPT/HCPCS: 93306

== ENCOUNTER → 2020-07-24 | Outpatient (CLI) | payer MEDICARE, OTHER ==
[~2020-07-24] MED LIST changes: +0.9 % SODIUM CHLORIDE 10 ML VIAL. ONE; +BUPIVACAINE MPF 0.25% 10 ML VIAL. ONE; +DEXAMETHASONE SOD PHOS 10 MG/ML VIAL. ONE; +IOHEXOL 300 MG/ML 50 ML VIAL. ONE; +LIDOCAINE 1% PF 30 ML VIAL. ONE
[2020-07-24 13:23] VITALS: BP 143/86
== END | disposition home or self-care (01) ==
LOC: SURG 12:32
PROVIDERS: ATTEND Anesthesiology
DX: M54.16 Radiculopathy, lumbar region (principal); I10 Essential (primary) hypertension; J44.9 Chronic obstructive pulmonary disease, unspecified; M19.90 Unspecified osteoarthritis, unspecified site; G47.30 Sleep apnea, unspecified; Z79.899 Other long term (current) drug therapy
CPT/HCPCS: 64483; 64484; J1100; J2001; J3490; Q9967

== ENCOUNTER 2020-08-26 19:54 | Emergency (ER) | payer MEDICARE, OTHER ==
[~2020-08-26] VITALS: Ht 185.4 cm; Wt 163.6 kg
[~2020-08-26 19:54] MED LIST changes: -0.9 % SODIUM CHLORIDE 10 ML VIAL. ONE; -BUPIVACAINE MPF 0.25% 10 ML VIAL. ONE; -DEXAMETHASONE SOD PHOS 10 MG/ML VIAL. ONE; -IOHEXOL 300 MG/ML 50 ML VIAL. ONE; -LIDOCAINE 1% PF 30 ML VIAL. ONE
[2020-08-26 21:13] VITALS: BP 145/84
--- NOTE | 2020-08-26 23:23 | PHYS DOC ---
Past History Past Medical History: CAD, COPD, Diabetes, High Cholesterol, Hypertension, TIA Past Surgical History: Other Smoking: Cigarettes Alcohol Use: None Drug Use: None Departure Departure: Impression: Primary Impression: Patient left without being seen Disposition: LEFT WITHOUT BEING SEEN Condition: STABLE PROVIDER NOTE PROVIDER NOTE PROVIDER NOTE I signed myself to this patient to be seen, however the patient did arrive during a high volume of patient arrivals. I was delayed in being able to evaluate this patient in the emergency department. Before I was able to examine the patient, I was informed that the patient decided to leave without being seen. No medical evaluation was administered nor were any treatments given to this patient. BILL WALLER MD Aug 26, 2020 23:23
== END 2020-08-26 22:57 | disposition left against medical advice (07) ==
LOC: ER 19:54
DX: M54.5 Low back pain (principal); I25.10 Atherosclerotic heart disease of native coronary artery without angina pectoris; J44.9 Chronic obstructive pulmonary disease, unspecified; E11.9 Type 2 diabetes mellitus without complications; E78.00 Pure hypercholesterolemia, unspecified; I10 Essential (primary) hypertension; F17.210 Nicotine dependence, cigarettes, uncomplicated; Z86.73 Personal history of transient ischemic attack (TIA), and cerebral infarction without residual deficits; Z53.21 Procedure and treatment not carried out due to patient leaving prior to being seen by health care provider

== ENCOUNTER → 2020-10-09 | Outpatient (CLI) | payer MEDICARE, OTHER ==
[~2020-10-09] MED LIST changes: +NAPR-682 PO
[2020-10-09 14:50] VITALS: BP 170/62
== END | disposition home or self-care (01) ==
LOC: SURG 13:54
PROVIDERS: ATTEND Anesthesiology
DX: M54.16 Radiculopathy, lumbar region (principal); I25.2 Old myocardial infarction; G47.30 Sleep apnea, unspecified; I10 Essential (primary) hypertension; E78.5 Hyperlipidemia, unspecified; E66.8 Other obesity; E11.9 Type 2 diabetes mellitus without complications; F11.90 Opioid use, unspecified, uncomplicated; J44.9 Chronic obstructive pulmonary disease, unspecified; F17.210 Nicotine dependence, cigarettes, uncomplicated; E03.0 Congenital hypothyroidism with diffuse goiter; G43.909 Migraine, unspecified, not intractable, without status migrainosus; K21.9 Gastro-esophageal reflux disease without esophagitis; I25.118 Atherosclerotic heart disease of native coronary artery with other forms of angina pectoris; Z88.0 Allergy status to penicillin; Z79.899 Other long term (current) drug therapy; Z79.82 Long term (current) use of aspirin; Z98.890 Other specified postprocedural states; Z79.01 Long term (current) use of anticoagulants; Z86.73 Personal history of transient ischemic attack (TIA), and cerebral infarction without residual deficits; Z87.39 Personal history of other diseases of the musculoskeletal system and connective tissue
CPT/HCPCS: 62323; 72275

== ENCOUNTER → 2020-10-18 | Outpatient (CLI) | payer MEDICARE, OTHER ==
[2020-10-09 14:50] VITALS: BP 170/62
--- NOTE | 2020-10-18 09:06 | RAD ---
PA and lateral chest radiographs 10/18/2020 CLINICAL HISTORY: Chronic cough. TECHNIQUE: Two PA and a lateral digital radiographs of the chest were obtained. Comparison study is dated 09/01/2019. The cardiac and mediastinal silhouettes are within normal limits in size and configuration. No acute pulmonary infiltrate is seen. No pleural effusion or pneumothorax is noted. Degenerative changes are seen involving the thoracic spine. IMPRESSION: No acute abnormality is seen. Electronically signed by: Alex Chahal MD (10/18/2020 9:03 AM) [id number]
== END ==
LOC: DXRAD 08:37
PROVIDERS: ATTEND Physician Assistant
DX: R05 Cough (principal); M47.814 Spondylosis without myelopathy or radiculopathy, thoracic region
CPT/HCPCS: 71046

== ENCOUNTER 2020-10-19 16:05 | Emergency (ER) | payer MEDICARE, OTHER ==
[~2020-10-19] VITALS: Ht 185.4 cm; Wt 170.2 kg
[2020-10-19 16:05] VITALS: BP 124/78
[~2020-10-19 16:05] MED LIST changes: -NAPR-682 PO
--- NOTE | 2020-10-19 16:23 | PHYS DOC ---
Past History Past Medical History: CAD, COPD, Diabetes, High Cholesterol, Hypertension, TIA Past Surgical History: Other Smoking: Cigarettes Alcohol Use: None Drug Use: None General Adult EDM: Chief Complaint: MECHANICAL FALL HPI: HPI: Patient is a 49-year-old male who was seen here for evaluation bilateral foot and ankle pain after he jumped off a six feet ladder,landed on his feet on concrete. Patient said he was on the ladder and it was not steady, instead of falling down, he jumped off. When he was on the ground, he fell on his buttock. He denied any back pain, no upper extremity pain, no knee pain, NO hip pain. No head or neck pain. Review of Systems: Review of Systems: Constitutional: Denies fever or chills Eyes: Denies change in visual acuity HENT: Denies nasal congestion or sore throat Respiratory: Denies cough or shortness of breath Cardiovascular: Denies chest pain or edema GI: Denies abdominal pain, nausea, vomiting, bloody stools or diarrhea : Denies dysuria Musculoskeletal: Positive for ankle pain, feet pain. Integument: Denies rash Neurologic: Denies headache, focal weakness or sensory changes Endocrine: Denies polyuria or polydipsia Lymphatic: Denies swollen glands Psychiatric: Denies depression or anxiety Allergies: Allergies: Allergies Coded Allergies Type Severity Reaction Last Updated Verified Penicillins Allergy Severe anaphylaxis 10/09/20 Yes Physical Exam: PE: Constitutional: Well developed, well nourished, no acute distress, non-toxic appearance. [] HENT: Normocephalic, atraumatic, bilateral external ears normal, oropharynx moist, no oral exudates, nose normal. [] Eyes: PERRLA, EOMI, conjunctiva normal, no discharge. [] Neck: Normal range of motion, no tenderness, supple, no stridor. [] Cardiovascular:Heart rate regular rhythm, no murmur [] Lungs & Thorax: Bilateral breath sounds clear to auscultation [] Abdomen: Bowel sounds normal, soft, no tenderness, no masses, no pulsatile masses. [] Skin: Warm, dry, no erythema, no rash. [] Back: No tenderness, no CVA tenderness. [] Extremities: There is no swelling or tenderness to palpation on bilateral knee, no swelling or tenderness to palpation on bilateral calcaneus. Bilateral ankle joints are stable, there is some tenderness to palpation on the lateral malleolar area of the right ankle. There is no swelling. There is no swelling or tenderness to palpation on both feet. Pelvic is stable, no tenderness to palpation. Neurologic: Alert and oriented X 3, normal motor function, normal sensory function, no focal deficits noted. [] Psychologic: Affect normal, judgement normal, mood normal. [] EKG: EKG: [] Radiology/Procedures: Radiology/Procedures: [][address] [address] IMAGING REPORT Signed PATIENT: TARUN COVARRUBIAS ACCOUNT: [id number] : 1970 LOCATION: ER AGE: 49 SEX: M EXAM STATUS: REG ER ORD. PHYSICIAN: SUSANA MULLIGAN DO REASON: FELL OFF LADDER, LANDED ON BUTTOCK PROCEDURE: PELVIS INDICATION: Status post fall COMPARISON: None. IMPRESSION: Pelvis: 2 views obtained. Degenerative changes the hips. No evidence of dislocation. A definite acute fracture line is not seen. Bilateral ankle: 3 views of each ankle obtained. Soft tissue swelling at the left ankle without a definite acute fracture or dislocation. There is some degenerative changes seen. There is soft tissue swelling at the right ankle is some degenerative changes. No evidence of acute fracture or dislocation. Bilateral feet: 3 views of each foot obtained. Edema is seen within the soft tissues of the right foot. Erosions are seen at the first metatarsal head with hypertrophic changes. Portion this could be from cyst formation as well. A definite acute fracture line is not seen. There is some overlap limiting midfoot. Hypertrophic changes at the left first metatarsophalangeal joint. There is some overlap limiting midfoot but a definite acute fracture line is not seen. Electronically signed by: Agustin Nation MD (10/19/2020 5:16 PM) [id number] DICTATED AND SIGNED BY: AGUSTIN NATION MD DATE: 10/19/20 1716 CC: EZRA CHAVES; SUSANA MULLIGAN DO ~MTH0 0 Heart Score: Risk Factors: Risk Factors: DM, Current or recent (<one month) smoker, HTN, HLP, family history of CAD, obesity. Risk Scores: Score 0 - 3: 2.5% MACE over next 6 weeks - Discharge Home Score 4 - 6: 20.3% MACE over next 6 weeks - Admit for Clinical Observation Score 7 - 10: 72.7% MACE over next 6 weeks - Early Invasive Strategies Course & Med Decision Making: Course & Med Decision Making Pertinent Labs and Imaging studies reviewed. (See chart for details) Patient is a 49-year-old male who jumped off a ladder, came in with bilateral feet and ankle pain, x-ray did not show any acute fracture or dislocation. Patient was discharged home, he was walking out of here without any problem Dragon Disclaimer: Dragon Disclaimer: This electronic medical record was generated, in whole or in part, using a voice recognition dictation system. Departure Departure: Impression: Primary Impression: Right ankle sprain Additional Impressions: Contusion of foot, left Contusion of foot, right Disposition: 01 DC HOME SELF CARE/HOMELESS Condition: STABLE Referrals: EZRA CHAVES (PCP) please follow up with your doctor next week for reevaluation Patient Instructions: Ankle Sprain, Contusion Scripts Naproxen Sodium (ANAPROX DS) 550 Mg Tablet 1 TAB PO BID for pain for 15 Days, #30 TAB 0 Refills Prov: SUSANA MULLIGAN DO 10/19/20 SUSANA MULLIGAN DO Oct 19, 2020 16:23
[2020-10-19] MEDS ORDERED: NAPR-682 PO (17:16)
--- NOTE | 2020-10-19 17:18 | RAD ---
INDICATION: Status post fall COMPARISON: None. IMPRESSION: Pelvis: 2 views obtained. Degenerative changes the hips. No evidence of dislocation. A definite acute fracture line is not seen. Bilateral ankle: 3 views of each ankle obtained. Soft tissue swelling at the left ankle without a definite acute fracture or dislocation. There is some degenerative changes seen. There is soft tissue swelling at the right ankle is some degenerative changes. No evidence of acute fracture or dislocation. Bilateral feet: 3 views of each foot obtained. Edema is seen within the soft tissues of the right foot. Erosions are seen at the first metatarsal head with hypertrophic changes. Portion this could be from cyst formation as well. A definite acute fracture line is not seen. There is some overlap limiting midfoot. Hypertrophic changes at the left first metatarsophalangeal joint. There is some overlap limiting midfoot but a definite acute fracture line is not seen. Electronically signed by: Duncan Solano MD (10/19/2020 5:16 PM) [id number]
[2020-10-19] MEDS ORDERED: IBUPROFEN 800 MG TABLET. PO ONE (17:30)
== END 2020-10-19 17:20 | disposition home or self-care (01) ==
LOC: ER 16:05
DX: S93.491A Sprain of other ligament of right ankle, initial encounter (principal); S90.32XA Contusion of left foot, initial encounter; S90.31XA Contusion of right foot, initial encounter; I11.9 Hypertensive heart disease without heart failure; J44.9 Chronic obstructive pulmonary disease, unspecified; E78.00 Pure hypercholesterolemia, unspecified; I10 Essential (primary) hypertension; F17.210 Nicotine dependence, cigarettes, uncomplicated; Z86.73 Personal history of transient ischemic attack (TIA), and cerebral infarction without residual deficits; Z98.890 Other specified postprocedural states; Z88.0 Allergy status to penicillin; W18.39XA Other fall on same level, initial encounter; Y93.89 Activity, other specified; Y92.89 Other specified places as the place of occurrence of the external cause; Y99.8 Other external cause status
CPT/HCPCS: 72170; 73610; 73630; 99284

== ENCOUNTER → 2020-11-07 | Outpatient (CLI) | payer MEDICARE, OTHER ==
[2020-10-19 16:05] VITALS: BP 124/78
[~2020-11-07] MED LIST changes: +IOHEXOL 240 MG/ML 50ML VIAL. ONE; +IOHEXOL 240 MG/ML 50ML VIAL. PO ONE; +IOHEXOL 300 MG/ML 75 ML VIAL. IV ONE; +NAPR-682 PO
--- NOTE | 2020-11-07 11:18 | RAD ---
Study: CT abdomen/pelvis with intravenous contrast Indication: Recent onset right upper quadrant abdominal pain. Comparison: Most recently on 09/01/2019 Technique: Helical CT imaging performed of the abdomen and pelvis after the intravenous administratio n of 74 cc Omnipaque 300 contrast. Sagittal and coronal reformats were obtained. One or more of the following individualized dose reduction techniques were utilized for this examinat ion: 1. Automated exposure control 2. Adjustment of the mA and/or kV according to patient size 3. Use of iterative reconstruction technique. Findings: Chest: No significant interval change. Liver: Diffuse hepatic steatosis. Gallbladder/Biliary Tree: No CT findings that would suggest acute cholecystitis. Unremarkable biliary tree. Pancreas: Similar degree of fatty infiltration. No peripancreatic inflammatory changes though suggest pancreatitis. Spleen: Unchanged degree of splenomegaly measuring 18.4 cm AP. Adrenal Glands: No adrenal gland mass. Kidneys/Ureters/Bladder: Scattered cystic foci bilaterally. A low-attenuation focus at the posterolat eral aspect of the lower left kidney, image 26 series 3, is better visualized on this exam but was fa intly present previously. It is favored that improved visualization today relates to bolus timing. Th e degree of perinephric fatty stranding has not significant changed. No collecting system dilatation. The urinary bladder is within normal limits. Reproductive Organs: Unchanged size of the prostate. Colon: A portion of the descending and distal transverse colon are excluded from the [id number]. T aking this into consideration the colon is unremarkable. Mild volume well-formed stool burden. Appendix: Normal. Small Bowel: Nonobstructed. Stomach: Unremarkable. Vasculature: Scattered aortic and iliofemoral calcific atherosclerosis. Nonaneurysmal aorta. Patent c entral portal veins and superior mesenteric vein. Lymph Nodes: A few mildly prominent but morphologically benign inguinal lymph nodes on both sides. No concerning lymph nodes throughout the abdomen or pelvis. Peritoneum and Body Wall: Redemonstrated right larger than left fat-containing inguinal hernias. Ther e is again a small supraumbilical hernia, image 38 series 3, though slightly increased in size. It no w appears as if a tiny portion of the anterior wall of the subjacent small bowel partially herniates through the defect, images 50 and 51 series 5. No free fluid or pneumoperitoneum. Bones: No acute or aggressive osseous process. Lumbar spine degenerative changes have not significant ly progressed and there is redemonstration of bilateral neural foraminal stenosis at L4-L5 and on the left more so than right at L5-S1. Narrowing of the central canal filled greatest at L4-L5 has not si gnificant changed. Miscellaneous: None. Impression: 1. No acute abnormality seen to involve the liver, gallbladder/biliary tree or pancreas to explain t he patient's right upper quadrant pain. 2. Small supraumbilical hernia that has slightly increased in size from 09/01/2019 and it now appears as if a tiny segment of small bowel (just the anterior wall) partially herniates into the defect. No bowel obstruction or CT manifestations of incarceration but correlate for pinpoint tenderness. 3. Additional unchanged/chronic findings discussed in the body the report. Electronically signed by: KEERTHI HOLDEN MD (11/07/2020 11:16 AM) [id number]
== END ==
LOC: CT 09:17
PROVIDERS: ATTEND Surgery
DX: K76.0 Fatty (change of) liver, not elsewhere classified (principal); K43.9 Ventral hernia without obstruction or gangrene; R16.1 Splenomegaly, not elsewhere classified
CPT/HCPCS: 74177; Q9966; Q9967

== ENCOUNTER → 2021-01-24 | Outpatient (CLI) | payer MEDICARE, OTHER ==
[~2021-01-24] MED LIST changes: -IOHEXOL 240 MG/ML 50ML VIAL. ONE; -IOHEXOL 240 MG/ML 50ML VIAL. PO ONE; -LISI-334 PO; +LISI20TA18 PO; -LISI40TA PO; +LISI40TA6 PO
--- NOTE | 2021-01-24 15:53 | RAD ---
EXAM: CT Abdomen and Pelvis with IV contrast CLINICAL HISTORY: Right upper quadrant pain COMPARISON: 11/07/2020 09/01/2019 TECHNIQUE: Helical CT of the abdomen and pelvis was performed following the administration of intrave nous contrast. Axial, coronal and sagittal reformatted images were generated. PQRS compliance statement - One or more of the following individualized dose reduction techniques wer e utilized for this study: 1. Automated exposure control 2. Adjustment of the mA and/or kV according to patient size 3. Use of iterative reconstruction technique FINDINGS: Lower Chest: Lung bases are clear. Abdomen and Pelvis: Liver measures approximately 18.3 cm in length. Hepatic hypoattenuation likely fatty liver. Spleen me asures 17.2 cm in length. Adrenal glands and pancreas are unremarkable. Gallbladder is normal. No biliary ductal dilatation. Left lower pole renal cysts are seen. No hydronephrosis. No hydroureter. Bladder is unremarkable. Moderate colonic stool content is seen. No small or large bowel dilatation. No bowel obstruction. Kimberly endix is normal. No abdominal or pelvic lymphadenopathy. No abdominal pelvic ascites. Fat-containing inguinal hernias and trace fat-containing periumbilical hernia. Bones: Degenerative changes of the spine. No aggressive osseous lesion. IMPRESSION: 1. Hepatic hypoattenuation likely fatty liver. Liver is borderline enlarged. 2. Spleen is mildly enlarged measuring 17.2 cm in length. 3. Moderate colonic stool content. No bowel obstruction. Electronically signed by: Case Alexandra MD (01/24/2021 3:51 PM) [id number]
== END ==
LOC: CT 08:38
DX: R16.2 Hepatomegaly with splenomegaly, not elsewhere classified (principal); K40.90 Unilateral inguinal hernia, without obstruction or gangrene, not specified as recurrent; K42.9 Umbilical hernia without obstruction or gangrene; N28.1 Cyst of kidney, acquired; M47.819 Spondylosis without myelopathy or radiculopathy, site unspecified
CPT/HCPCS: 74177; Q9967

== ENCOUNTER → 2021-02-17 | Outpatient (CLI) | payer MEDICARE, OTHER ==
[~2021-02-17] MED LIST changes: -IOHEXOL 300 MG/ML 75 ML VIAL. IV ONE
--- NOTE | 2021-02-17 10:51 | RAD ---
EXAMINATION: RIGHT UPPER QUADRANT ULTRASOUND CLINICAL HISTORY: RUQ PAIN, FATTY LIVER ON RECENT CT TECHNIQUE: Sonography of the right upper quadrant was performed. COMPARISON: CT abdomen/pelvis 01/24/2021 FINDINGS: Pancreas: Poorly visualized. Liver: Increased parenchymal echogenicity and beam attenuation, compatible with steatosis. No focal h epatic lesion visualized. Biliary: No intrahepatic biliary duct dilation. - CBD: 6 mm. - Gallbladder: Normal caliber. - Contents: No cholelithiasis. - Wall: No abnormal thickening. - Other: No pericholecystic fluid. Right Kidney: Measures 12.8 cm in length. No hydronephrosis or focal lesion. Ascites: None. Aorta/IVC: Poorly visualized. IMPRESSION: Hepatic steatosis. Poorly visualized pancreas. Electronically signed by: Alexandru Torres DO (02/17/2021 10:48 AM) [id number]
== END ==
LOC: US 08:40
PROVIDERS: ATTEND Internal Medicine Gastroenterology
DX: K76.0 Fatty (change of) liver, not elsewhere classified (principal)
CPT/HCPCS: 76705

== ENCOUNTER → 2021-02-26 | Day surgery (SDC) | payer MEDICARE, OTHER ==
[2021-02-26 13:30] VITALS: BP 176/85
== END | disposition home or self-care (01) ==
LOC: SURG 12:58
PROVIDERS: ATTEND Anesthesiology
DX: M54.5 Low back pain (principal); M79.604 Pain in right leg; M79.605 Pain in left leg; J44.9 Chronic obstructive pulmonary disease, unspecified; G47.33 Obstructive sleep apnea (adult) (pediatric); M19.90 Unspecified osteoarthritis, unspecified site; I10 Essential (primary) hypertension; I25.10 Atherosclerotic heart disease of native coronary artery without angina pectoris; K44.9 Diaphragmatic hernia without obstruction or gangrene; Z79.82 Long term (current) use of aspirin; Z79.899 Other long term (current) drug therapy
CPT/HCPCS: 99213; G0463

== ENCOUNTER 2021-03-14 20:40 | Emergency (ER) | payer MEDICARE, OTHER ==
[~2021-03-14] VITALS: Ht 185.4 cm; Wt 167.5 kg
--- NOTE | 2021-03-14 21:03 | EKG ---
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
[2021-03-14 21:08] VITALS: BP 132/72
--- NOTE | 2021-03-14 21:16 | PHYS DOC ---
Past History Past Medical History: CAD, COPD, Dementia, Diabetes, Hypertension Additional Past Medical Histor: back pain Past Surgical History: No Surgical History Smoking: Cigarettes Alcohol Use: None Drug Use: None Adult General Chief Complaint Chief Complaint: CHEST PAIN HPI HPI Patient is a 50-year-old male with a past medical history significant for obesity, hypertension, hyperlipidemia, and heartburn who presents with a chief complaint of epigastric pain. States this has been going on intermittently over the last 4 to 6 weeks. Cannot identify any aggravating or alleviating factors. States about a week to 10 days ago he got an EGD and colonoscopy. States the EGD was normal and he had a small polyp removed with a colonoscopy. Denies any complications since then. States that the symptoms started long before these interventions. Denies any chest pain, shortness of breath, nausea, vomiting, diarrhea. Denies any dyspnea on exertion, orthopnea, PND or edema. States he is eating and drinking normally for him. States he is making urine and stool normally for him with no blood in either. Denies any recent traumas, travels, fevers, known ill contacts. Denies any history of VTE. Review of Systems Review of Systems Review of systems otherwise unremarkable except noted in HPI Allergies Allergies Allergies Coded Allergies Type Severity Reaction Last Updated Verified Penicillins Allergy Severe anaphylaxis 10/09/20 Yes Physical Exam Physical Exam Constitutional: Well developed, well nourished, no acute distress, non-toxic appearance. [] HENT: Normocephalic, atraumatic, bilateral external ears normal, oropharynx moist, no oral exudates, nose normal. [] Eyes: conjunctiva normal, no discharge. [] Neck: Normal range of motion, no tenderness, supple, no stridor. [] Cardiovascular:Heart rate regular rhythm, no murmur [] Lungs & Thorax: Bilateral breath sounds clear to auscultation [] Abdomen: soft, no tenderness, no masses, no pulsatile masses. [] Skin: Warm, dry, no erythema, no rash. [] Back: no CVA tenderness. [] Extremities: No tenderness, no cyanosis, no clubbing, ROM intact, no edema. [] Neurologic: Alert and oriented X 3, normal motor function, normal sensory function, no focal deficits noted. [] Psychologic: Affect normal, judgement normal, mood normal. [] EKG EKG EKG with a rate of 89, QRS of 86, QTc of 402. No STEMI. PACs present. [] Radiology/Procedures Radiology/Procedures []Exam: Chest one view INDICATION: Chest pain TECHNIQUE: Frontal view of the chest Comparisons: 10/18/2020 FINDINGS: The cardiomediastinal silhouette and pulmonary vessels are within normal limits. The lung and pleural spaces are clear. IMPRESSION: No acute cardiopulmonary process. Heart Score C/O Chest Pain: No Risk Factors: Risk Factors: DM, Current or recent (<one month) smoker, HTN, HLP, family history of CAD, obesity. Risk Scores: Risk Factors: DM, Current or recent (<one month) smoker, HTN, HLP, family h istory of CAD, obesity. Course & Med Decision Making Course & Med Decision Making Patient is a 50-year-old male who presents with epigastric pain for 4 to 6 weeks Vital signs not concerning. Physical exam noted above. Patient given aspirin. EKG noted above and normal. Troponin normal. Low risk Wells. PERC negative. Laboratory analysis not concerning. Patient asymptomatic in the ED. On reassessment patient stated he was feeling better and was ready to be discharged home. Discussed all findings with patient. Advised to follow-up first thing Wednesday with his primary care physician to discuss his ED visit and set up a follow-up as soon as possible. Gave strict return precautions to the emergency department. Patient grateful, verbalized understanding and agreed with plan of discharge. Dragon Disclaimer Dragon Disclaimer This electronic medical record was generated, in whole or in part, using a voice recognition dictation system. Departure Departure: Impression: Primary Impression: Epigastric pain Disposition: HOME / SELF CARE / HOMELESS Condition: GOOD Referrals: EZRA CHAVES (PCP) Patient Instructions: Abdominal Pain, Chest Pain (Nonspecific), [id number] Additional Instructions: Please read all of the attached information carefully. Your laboratory analysis today was not concerning. Your EKG and troponin which looks at your heart did not indicate a heart attack (myocardial infarction) today as discussed. As discussed, please take all your medications as prescribed daily and follow-up first thing Wednesday morning with your primary care physician. When you call your primary care physician first thing Wednesday morning update on ED visit and set up a follow-up as soon as you can this week. As discussed, please come back to the emergency department immediately with new or concerning symptoms. ALEKSEY LOPEZ MD Mar 14, 2021 21:16
[2021-03-14 21:26] LABS: BASO # 0.1 x10^3/uL (0.0-0.2); BASO % 1 % (0-3); EOS # 0.2 x10^3/uL (0.0-0.7); EOS % 2 % (0-3); HEMATOCRIT 47.9 % (39.0-53.0); HEMOGLOBIN 16.3 g/dL (13.0-17.5); LYMPH # 1.6 x10^3/uL (1.0-4.8); LYMPH % 18 % (24-48); MEAN CORPUSCULAR HEMOGLOBIN 29 pg (25-35); MEAN CORPUSCULAR HGB CONC 34 g/dL (31-37); MEAN CORPUSCULAR VOLUME 85 fL (79-100); MONO # 0.4 x10^3/uL (0.0-1.1); MONO % 5 % (0-9); NEUT # 6.7 x10^3uL (1.8-7.7); NEUT % 75 % (31-73); PLATELET COUNT 214 x10^3/uL (140-400); RED BLOOD COUNT 5.65 x10^6/uL (4.30-5.70); RED CELL DISTRIBUTION WIDTH 14.5 % (11.5-14.5)
[2021-03-14 21:27] LABS: CALCIUM 8.8 mg/dL (8.5-10.1); CREATININE 1.4 mg/dL (0.7-1.3); GFR 53.6
[2021-03-14] MEDS ORDERED: ASPIRIN CHEWABLE 81 MG TABLET. PO ONE (21:30)
[2021-03-14 21:40] LABS: ALBUMIN 3.6 g/dL (3.4-5.0); ALBUMIN/GLOBULIN RATIO 1.2 (1.0-1.7); MAGNESIUM 1.8 mg/dL (1.8-2.4); POTASSIUM 4.2 mmol/L (3.5-5.1); TOTAL BILIRUBIN 0.4 mg/dL (0.2-1.0); TOTAL PROTEIN 6.7 g/dL (6.4-8.2)
--- NOTE | 2021-03-14 22:20 | RAD ---
Exam: Chest one view INDICATION: Chest pain TECHNIQUE: Frontal view of the chest Comparisons: 10/18/2020 FINDINGS: The cardiomediastinal silhouette and pulmonary vessels are within normal limits. The lung and pleural spaces are clear. IMPRESSION: No acute cardiopulmonary process. Electronically signed by: Demarco Langston MD (03/14/2021 10:18 PM) LORI
== END 2021-03-14 22:48 | disposition home or self-care (01) ==
LOC: ER 20:40
DX: R10.13 Epigastric pain (principal); I10 Essential (primary) hypertension; J44.9 Chronic obstructive pulmonary disease, unspecified; E11.9 Type 2 diabetes mellitus without complications; F03.90 Unspecified dementia, unspecified severity, without behavioral disturbance, psychotic disturbance, mood disturbance, and anxiety; I25.10 Atherosclerotic heart disease of native coronary artery without angina pectoris; F17.210 Nicotine dependence, cigarettes, uncomplicated; E66.9 Obesity, unspecified; Z68.42 Body mass index [BMI] 45.0-49.9, adult; Z88.0 Allergy status to penicillin
CPT/HCPCS: 36415; 71045; 80053; 83690; 83735; 83880; 84484; 85025; 86705; 86709; 86803; 87340; 93005; 99285-25

== ENCOUNTER → 2021-04-02 | Day surgery (SDC) | payer MEDICARE, OTHER ==
[~2021-04-02] MED LIST changes: +0.9 % SODIUM CHLORIDE 10 ML VIAL. ONE; +BUPIVACAINE MPF 0.25% 10 ML VIAL. ONE; +DEXAMETHASONE SOD PHOS 10 MG/ML VIAL. ONE; +IOHEXOL 300 MG/ML 50 ML VIAL. ONE; +LIDOCAINE 1% PF 30 ML VIAL. ONE
[2021-04-02 15:04] VITALS: BP 148/76
== END | disposition home or self-care (01) ==
LOC: SURG 14:00
PROVIDERS: ATTEND Anesthesiology
DX: M54.16 Radiculopathy, lumbar region (principal); I25.2 Old myocardial infarction; E11.9 Type 2 diabetes mellitus without complications; I10 Essential (primary) hypertension; E78.5 Hyperlipidemia, unspecified; E03.0 Congenital hypothyroidism with diffuse goiter; K21.9 Gastro-esophageal reflux disease without esophagitis; J44.9 Chronic obstructive pulmonary disease, unspecified; I25.118 Atherosclerotic heart disease of native coronary artery with other forms of angina pectoris; G47.33 Obstructive sleep apnea (adult) (pediatric); Z88.0 Allergy status to penicillin; Z79.899 Other long term (current) drug therapy; Z79.82 Long term (current) use of aspirin; Z86.73 Personal history of transient ischemic attack (TIA), and cerebral infarction without residual deficits
CPT/HCPCS: 62323; J1100; J3490; Q9967

== ENCOUNTER → 2021-07-29 | Outpatient (CLI) | payer MEDICARE, OTHER ==
[2021-04-02 15:04] VITALS: BP 148/76
[~2021-07-29] MED LIST changes: -0.9 % SODIUM CHLORIDE 10 ML VIAL. ONE; -BUPIVACAINE MPF 0.25% 10 ML VIAL. ONE; -DEXAMETHASONE SOD PHOS 10 MG/ML VIAL. ONE; -IOHEXOL 300 MG/ML 50 ML VIAL. ONE; -LIDOCAINE 1% PF 30 ML VIAL. ONE
--- NOTE | 2021-07-29 17:45 | RAD ---
EXAM: Bilateral knees, 2 views. HISTORY: Pain. Prior left meniscus surgery. COMPARISON: None. FINDINGS: 2 views of both knees are obtained. There is mild left medial compartment and minimal left patellofemoral compartment spurring. There is a small joint loose body overlying the left lateral com partment. There is a left intra-articular osteophyte projecting from the tibial plateau. There is no fracture, dislocation or subluxation. There is no segmental joint effusion. IMPRESSION: 1. Mild medial compartment and minimal patellofemoral compartment osteoarthritis of the left knee wit h joint loose body. 2. No acute osseous finding. Electronically signed by: Domonique Rubalcava MD (07/29/2021 5:43 PM) [id number]
== END ==
LOC: RAD 13:19
PROVIDERS: ATTEND Physician Assistant
DX: M17.12 Unilateral primary osteoarthritis, left knee (principal); M25.762 Osteophyte, left knee; M23.42 Loose body in knee, left knee; M76.892 Other specified enthesopathies of left lower limb, excluding foot
CPT/HCPCS: 73560-50

== ENCOUNTER 2021-08-16 15:33 | Emergency (ER) | payer MEDICARE, OTHER ==
[~2021-08-16] VITALS: Ht 185.4 cm; Wt 163.4 kg
[2021-08-16 15:44] VITALS: BP 157/75
--- NOTE | 2021-08-16 16:35 | PHYS DOC ---
Past History Past Medical History: Cancer, GERD, High Cholesterol, Heart Disease Additional Past Medical Histor: back pain Past Surgical History: Cancer Surgery, Knee Replacement Smoking: Cigarettes Alcohol Use: None Drug Use: None Adult General Chief Complaint Chief Complaint: HYPERGLYCEMIA HPI HPI Patient is a 50-year-old male presenting for hyperglycemia. He has poor health literacy and extensive past medical issues pertinent for uncontrolled type 2 diabetes, history of CAD and CVA, hypertension and hypercholesterol. Patient reports feeling more tired than usual today when waking up. States this persisted for several hours without any known inciting event, trauma, ingestion or exposure. Reports his sugar is usually high when he feels like this prompting his to check his fingerstick blood glucose which read 350. Patient states he ate fruit and drink juice which he does in attempt to lower his blood sugar but this did the office it prompting him to get concerned and arrived at our ER for evaluation. He has no major complaints besides ongoing fatigue and lack of energy. He does admit he is had poor p.o. fluid intake and feels dehydrated, no fever, blurred vision, ripping or tearing sensation in chest, chest pain, cough, abdominal pain, nausea vomiting diarrhea, urinary symptoms Review of Systems Review of Systems Fourteen body systems of review of systems have been reviewed. See HPI for pertinent positives and negative responses, other crocker all other systems are negative, non-pertinent or non-contributory Allergies Allergies Allergies Coded Allergies Type Severity Reaction Last Updated Verified Penicillins Allergy Severe anaphylaxis 10/09/20 Yes Physical Exam Physical Exam Constitutional: Age-appropriate male who is obese but in no acute distress, nontoxic in appearance, poor overall hygiene HENT: Normocephalic, atraumatic, bilateral external ears normal, oropharynx moist, no oral exudates, nose normal. Eyes: PERRLA, EOMI, conjunctiva normal, no discharge. Neck: Normal range of motion, no tenderness, supple, no stridor. Cardiovascular: Heart rate regular, sinus rhythm, no murmurs rubs or gallops Lungs & Thorax: Bilateral breath sounds clear to auscultation Abdomen: Bowel sounds normal, soft and protuberant, no tenderness, no masses, no pulsatile masses. Nonsurgical abdomen, no peritoneal signs Skin: Warm, dry, no erythema, no rash. Back: No tenderness, no CVA tenderness. Extremities: No tenderness, no cyanosis, no clubbing, ROM intact, no edema. Neurologic: Alert and oriented X 3, grossly normal motor & sensory function, no focal deficits noted. Psychologic: Affect normal, judgement normal, mood normal. Current Patient Data Vital Signs Vital Signs Date Time Temp Pulse Resp B/P (MAP) Pulse Ox O2 Delivery O2 Flow Rate FiO2 08/16/21 15:44 92 20 157/75 (102) 97 Lab Results Laboratory Tests Test 08/16/21 15:38 Glucose (Fingerstick) 366 mg/dL (70-99) H EKG EKG EKG ordered and interpreted by myself at 1703 hrs. as sinus rhythm at 81 bpm, unremarkable intervals, no axis deviation, no acute ischemic findings, no STEMI Radiology/Procedures Radiology/Procedures [] Heart Score C/O Chest Pain: No HEART Score for Chest Pain: HEART Score for Chest Pain Response (Comments) Value History Slighlty/Non-Suspicious 0 ECG Normal 0 Age >45 - < 65 1 Risk Factors >3 Risk Factors or Hx CAD 2 Troponin < Normal Limit 0 Total 3 Risk Factors: Risk Factors: DM, Current or recent (<one month) smoker, HTN, HLP, family hist ory of CAD, obesity. Risk Scores: Risk Factors: DM, Current or recent (<one month) smoker, HTN, HLP, family history of CAD, obesity. Course & Med Decision Making Course & Med Decision Making ABCs unremarkable. Patient presenting for high blood glucose and feelings of being dehydrated. IV fluid and IV insulin administered. Patient has poor health literacy, extensive time was taken to educate patient and significant other on diabetes management. They were under the impression that after googling blood sugar emergencies, that drinking juice and eating fruit would decrease their blood sugar, I discussed that is the office it and they probably read an article about hypoglycemia. Regardless, no indication for further diagnostic work-up and/or intervention or need for hospitalization based on ER visit today. He has good access to primary care physician, after educating patient and significant other extensively on diabetes, I discussed need to keep a dedicated fingerstick blood glucose log for review in outpatient setting. He has all resources he needs at home such as a glucometer and test strips etc. strict return precautions were discussed with good verbalized understanding by patient and significant other, all questions and concerns addressed prior to ER departure Zurdo Disclaimer Zurdo Disclaimer This electronic medical record was generated, in whole or in part, using a voice recognition dictation system. Departure Departure: Impression: Primary Impression: Hyperglycemia due to type 2 diabetes mellitus Disposition: HOME / SELF CARE / HOMELESS Condition: STABLE Referrals: EZRA CHAVES (PCP) Additional Instructions: You were seen for hyperglycemia. You need to continue taking your insulin/diabetes medications as prescribed and follow up with your primary care doctor as soon as possible. It is important for good glycemic control to reduce the risks of acute and chronic medical problems. Please keep a dedicated blood sugar log for review with your primary care physician in the outpatient setting. Return to the ED if you develop any abdominal pain, vomiting, cough, chest pain, fever, or any other new or concerning symptoms. CARMELA DOTSON DO Aug 16, 2021 16:35
[2021-08-16] MEDS ORDERED: IV NORMAL SALINE 1,000ML 1,000 ML IV ONE (16:45)
[2021-08-16 17:01] LABS: BASO # 0.1 x10^3/uL (0.0-0.2); BASO % 1 % (0-3); EOS # 0.1 x10^3/uL (0.0-0.7); EOS % 2 % (0-3); HEMATOCRIT 46.6 % (39.0-53.0); HEMOGLOBIN 15.9 g/dL (13.0-17.5); LYMPH # 1.3 x10^3/uL (1.0-4.8); LYMPH % 19 % (24-48); MEAN CORPUSCULAR HEMOGLOBIN 30 pg (25-35); MEAN CORPUSCULAR HGB CONC 34 g/dL (31-37); MEAN CORPUSCULAR VOLUME 88 fL (79-100); MONO # 0.4 x10^3/uL (0.0-1.1); MONO % 5 % (0-9); NEUT # 5.1 x10^3uL (1.8-7.7); NEUT % 73 % (31-73); PLATELET COUNT 197 x10^3/uL (140-400); RED BLOOD COUNT 5.31 x10^6/uL (4.30-5.70); RED CELL DISTRIBUTION WIDTH 14.3 % (11.5-14.5); WHITE BLOOD COUNT 6.9 x10^3/uL (4.0-11.0)
[2021-08-16 17:12] LABS: CALCIUM 8.4 mg/dL (8.5-10.1); CREATININE 1.2 mg/dL (0.7-1.3); GFR 64.1; POTASSIUM 3.9 mmol/L (3.5-5.1)
--- NOTE | 2021-08-16 17:21 | EKG ---
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
[2021-08-16] MEDS ORDERED: INSULIN REGULAR 100 UNIT/ML 3ML VIAL. IV ONE (17:30)
== END 2021-08-16 17:52 | disposition home or self-care (01) ==
LOC: ER 15:33
DX: E11.65 Type 2 diabetes mellitus with hyperglycemia (principal); I10 Essential (primary) hypertension; E78.00 Pure hypercholesterolemia, unspecified; I25.10 Atherosclerotic heart disease of native coronary artery without angina pectoris; Z88.0 Allergy status to penicillin; Z86.73 Personal history of transient ischemic attack (TIA), and cerebral infarction without residual deficits
CPT/HCPCS: 36415; 80048; 82947; 84484; 85025; 93005; 96361; 96374; 99284; J1815; J7030

== ENCOUNTER 2021-11-05 09:59 | Emergency (ER) | payer MEDICARE, OTHER ==
[~2021-11-05] VITALS: Ht 185.4 cm; Wt 161.0 kg
[~2021-11-05 09:59] MED LIST changes: -CYCL-331 PO; +CYCL10TA19 PO
[2021-11-05 10:20] VITALS: BP 137/70
[2021-11-05] MEDS ORDERED: LIDOCAINE/EPI/TETRACAINE TOPICAL GEL 3 ML. TP ONE (10:45)
[2021-11-05] MEDS ORDERED: HYDROcodone/APAP 5/325MG 1 TAB TABLET PO ONE (10:45)
[2021-11-05] MEDS ORDERED: LIDOCAINE 1%/EPI 1:100,000 20 ML VIAL. IJ ONE (10:45)
[2021-11-05] MEDS ORDERED: HYDR-2155 PO (12:33)
[2021-11-05] MEDS ORDERED: SULF1TAB24 PO (12:33)
--- NOTE | 2021-11-05 12:33 | PHYS DOC ---
Past History Past Medical History: Cancer, GERD, High Cholesterol, Heart Disease Additional Past Medical Histor: back pain (BLAZE GAUTAM APRN) Past Surgical History: Angioplasty, Cancer Surgery, Knee Replacement (BLAZE GAUTAM APRN) Smoking: Cigarettes Alcohol Use: Occasionally Drug Use: None (BLAZE GAUTAM APRN) General Adult EDM: Chief Complaint: ABSCESS HPI: HPI: Patient is a 50-year-old male that presents today with an abscess to his left inner thigh. Patient states that he saw his primary care physician a couple days ago for the possibility of a cellulitic area in his inner thigh a couple days ago was started on some doxycycline at that time he says that over the last 24 hours it has become more painful and has grown. Patient states last night he got into the bathtub and stuck a needle in it and he said he got a large amount of "stuff out of it". Patient states that he was up most of the night due to increased pain and presents today for further drainage of this abscess. Patient denies fever and chills. (BLAZE GAUTAM APRN) Review of Systems: Review of Systems: Constitutional: Denies fever or chills Eyes: Denies change in visual acuity HENT: Denies nasal congestion or sore throat Respiratory: Denies cough or shortness of breath Cardiovascular: Denies chest pain or edema GI: Denies abdominal pain, nausea, vomiting, bloody stools or diarrhea : Denies dysuria Musculoskeletal: Left inner thigh wound with drainage Integument: Denies rash Neurologic: Denies headache, focal weakness or sensory changes Endocrine: Denies polyuria or polydipsia Lymphatic: Denies swollen glands Psychiatric: Denies depression or anxiety (BLAZE GAUTAM APRN) Current Medications: Current Meds: Current Medications Medications (Trade) Dose Ordered Sig/Radha Start Time Stop Time Status Last Admin Dose Admin Acetaminophen/ Hydrocodone Bitart (Lortab 5/325) 2 tab 1X ONCE 11/05/21 10:45 11/05/21 10:52 DC 11/05/21 11:05 2 TAB Lidocaine/ Epinephrine (Let (Dbrn-Ghyipfm-Zavsu) Gel) 3 ml 1X ONCE 11/05/21 10:45 11/05/21 10:52 DC 11/05/21 11:04 3 ML Lidocaine/ Epinephrine (Xylocaine 1%-Epi 1:100,000) 20 ml 1X ONCE 11/05/21 10:45 11/05/21 10:52 DC 11/05/21 11:04 20 ML (BLAZE GAUTAM APRN) Allergies: Allergies: Allergies Coded Allergies Type Severity Reaction Last Updated Verified Penicillins Allergy Severe anaphylaxis 10/09/20 Yes (BLAZE GAUTAM APRN) Physical Exam: PE: Constitutional: Well developed, well nourished, no acute distress, non-toxic appearance. [] HENT: Normocephalic, atraumatic, bilateral external ears normal, oropharynx moist, no oral exudates, nose normal. [] Eyes: PERRLA, EOMI, conjunctiva normal, no discharge. [] Neck: Normal range of motion, no tenderness, supple, no stridor. [] Cardiovascular:Heart rate regular rhythm, no murmur [] Lungs & Thorax: Bilateral breath sounds clear to auscultation [] Abdomen: Bowel sounds normal, soft, no tenderness, no masses, no pulsatile masses. [] Skin: Warm, dry, no erythema, no rash. [] Back: No tenderness, no CVA tenderness. [] Extremities: Left inner thigh a 5 cm x 3 cm reddened raised area that has scant amount of drainage, area is painful to touch, no streaking noted in the leg, no diminished range of motion. Neurologic: Alert and oriented X 3, normal motor function, normal sensory function, no focal deficits noted. [] Psychologic: Affect normal, judgement normal, mood normal. [] (BLAZE GAUTAM APRN) Current Patient Data: Vital Signs: Vital Signs Date Time Temp Pulse Resp B/P (MAP) Pulse Ox O2 Delivery O2 Flow Rate FiO2 11/05/21 11:05 20 95 11/05/21 10:20 98.2 90 137/70 (92) (BLAZE GAUTAM APRN) EKG: EKG: [] (BLAZE GAUTAM APRN) Radiology/Procedures: Radiology/Procedures: Indication: Left inner thigh abscess Procedure: The patient was positioned appropriately and the skin over the incision site was cleansed with Betadine solution, lidocaine 1% with epinephrine 8 mL was instilled into the area. An incision was then made over the left inner thigh abscess, area was explored no inoculations no drainage was noted. Area was irrigated with 120 mL of normal saline. Dressing applied by nursing staff. Tetanus status is up-to-date The patient tolerated the procedure well Complications: No complications (BLAZE GAUTAM APRN) Heart Score: C/O Chest Pain: N/A Risk Factors: Risk Factors: DM, Current or recent (<one month) smoker, HTN, HLP, family history of CAD, obesity. Risk Scores: Score 0 - 3: 2.5% MACE over next 6 weeks - Discharge Home Score 4 - 6: 20.3% MACE over next 6 weeks - Admit for Clinical Observation Score 7 - 10: 72.7% MACE over next 6 weeks - Early Invasive Strategies (BLAZE GAUTAM APRN) Course & Med Decision Making: Course & Med Decision Making Pertinent Labs and Imaging studies reviewed. (See chart for details) Patient was instructed to continue the doxycycline, will add Bactrim DS to his regimen. She is instructed to wash the area with antibacterial soap, watch for any increased redness or warmth in the area, patient is instructed to follow-up with his primary care physician early next week, patient is to return to the emergency department for fever, inability to keep by mouth fluids down, increased pain, swelling, or redness and warmth in that area. (BLAZE GAUTAM MERCHANDISE SUPERVISOR) Dragon Disclaimer: Dragon Disclaimer: This electronic medical record was generated, in whole or in part, using a voice recognition dictation system. (BLAZE GAUTAM MERCHANDISE SUPERVISOR) Departure Departure: Impression: Primary Impression: Abscess of left thigh Disposition: HOME / SELF CARE / HOMELESS Condition: STABLE Referrals: EZRA CHAVES (PCP) Patient Instructions: Abscess Additional Instructions: Continue with doxycycline Bactrim DS twice daily for 7 full days Clean wound 1-2 times daily with antibacterial soap, watching for any signs of increased swelling, redness, or warmth at the area Return to the emergency department for increased pain, swelling, redness, warmth, or systemic fever Follow-up with your primary care physician next week Scripts Sulfamethoxazole/Trimethoprim (BACTRIM DS TABLET) 1 Each Tablet 1 TAB PO BID for abscess for 7 Days, #14 TAB 0 Refills Prov: BLAZE GAUTAM MERCHANDISE SUPERVISOR 11/05/21 Attending Signature Attending Signature I have reviewed the PA/DIRECTOR INTEGRATED's note and plan of care. I was available for consultation as needed during the patient's visit in the emergency department. I agree with the clinical impression, plan, and disposition. (KEITH SHARP DO) BLAZE GAUTAM MERCHANDISE SUPERVISOR Nov 05, 2021 12:33 KEITH SHARP DO Nov 06, 2021 01:12
== END 2021-11-05 12:55 | disposition home or self-care (01) ==
LOC: ER 09:59
DX: L02.416 Cutaneous abscess of left lower limb (principal); K21.9 Gastro-esophageal reflux disease without esophagitis; E78.00 Pure hypercholesterolemia, unspecified; F17.210 Nicotine dependence, cigarettes, uncomplicated; Z88.0 Allergy status to penicillin
CPT/HCPCS: 10060; 99283

== ENCOUNTER 2021-11-14 09:17 | Inpatient (IN) | payer MEDICARE, OTHER ==
[~2021-11-14] VITALS: Ht 185.4 cm; Wt 145.4 kg
[~2021-11-14 09:17] MED LIST changes: +SULF1TAB24 PO
[2021-11-14] MEDS ORDERED: IV NORMAL SALINE 1,000ML 1,000 ML IV ONE (10:30)
[2021-11-14] MEDS ORDERED: IOHEXOL 300 MG/ML 75 ML VIAL. IV ONE (10:30)
[2021-11-14 10:59] LABS: BASO % 1 % (0-3); EOS # 0.1 x10^3/uL (0.0-0.7); EOS % 1 % (0-3); HEMATOCRIT 49.9 % (39.0-53.0); HEMOGLOBIN 17.1 g/dL (13.0-17.5); LYMPH % 11 % (24-48); MEAN CORPUSCULAR HEMOGLOBIN 30 pg (25-35); MEAN CORPUSCULAR HGB CONC 34 g/dL (31-37); MEAN CORPUSCULAR VOLUME 87 fL (79-100); MONO # 0.4 x10^3/uL (0.0-1.1); MONO % 4 % (0-9); NEUT # 7.4 x10^3uL (1.8-7.7); NEUT % 83 % (31-73); PLATELET COUNT 185 x10^3/uL (140-400); RED BLOOD COUNT 5.71 x10^6/uL (4.30-5.70); RED CELL DISTRIBUTION WIDTH 14.2 % (11.5-14.5); WHITE BLOOD COUNT 8.9 x10^3/uL (4.0-11.0)
[2021-11-14] MEDS ORDERED: ONDANSETRON PF 4 MG/2 ML VIAL. IVP ONE (11:15)
[2021-11-14] MEDS ORDERED: HYDROmorphone PF 1 MG/ML DISP.SYRIN IVP ONE ×2 (11:15→12:15)
[2021-11-14 11:19] LABS: CALCIUM 8.5 mg/dL (8.5-10.1); CREATININE 1.3 mg/dL (0.7-1.3); GFR 58.4; POTASSIUM 4.2 mmol/L (3.5-5.1)
[2021-11-14 11:32] LABS: ALBUMIN 3.5 g/dL (3.4-5.0); TOTAL BILIRUBIN 0.8 mg/dL (0.2-1.0)
--- NOTE | 2021-11-14 11:49 | RAD ---
Site ID: [id number] EXAMINATION: CT ABDOMEN+PELVIS W. Technique: Axial images with coronal and sagittal reconstructions are performed of abdomen and pelvis with intravenous contrast. 100 mL of Isovue-300 was administered intravenously. One or more of the following radiation dose reduction techniques was used: automated exposure control , adjustment of mA and/or KV according to patient size, and/or utilization of iterative reconstructio n technique. HISTORY: 50 years Male Reason: testicle abscess. . COMPARISON: January 24, 2021. FINDINGS: The lung bases are clear. The liver demonstrates hypoattenuation compatible with fatty infiltration with no focal mass identifi ed. The gallbladder demonstrates no calcified stones. The pancreas and the adrenal glands appear unre markable. Spleen is mildly to moderately enlarged measuring in AP dimension 18.8 cm. The kidneys demonstrate no hydronephrosis. Again demonstrated the hypodense lesions in the lower pole of the right kidney measuring up to 2.5 cm in size with the low attenuation suggestive of cysts. The re is slight heterogeneity in the inferior lesion which could be related to internal debris. To rule out a solid component, renal ultrasound is recommended. The abdominal aorta is normal in caliber. No para-aortic significantly enlarged lymph node is seen. There is a no significant free fluid or fluid collection in the abdomen or pelvis. The appendix is no rmal. No bowel obstruction. The urinary bladder appear unremarkable. There is prominent fat content within the inguinal canals wh ich could the be related to small fat-containing hernias. Scanning through the area of the scrotum demonstrate edema around the testicle more on the left side with no definite abscess. The osseous structures demonstrate the mild degenerative changes. IMPRESSION: 1. Edema around left testicle with no abscess identified. Sclerae ultrasound would be helpful if ther e is concern about the testicular vascularity. 2. Hepatic steatosis. 3. Mild to moderate splenomegaly. 4. Bilateral small fat-containing inguinal hernias. 5. Hypodense heterogeneous lesion in the lower pole of the left kidney. Renal ultrasound follow-up is recommended to rule out a solid component. Electronically signed by: Stephon Montes MD (11/14/2021 11:47 AM) [id number]
[2021-11-14] MEDS ORDERED: VANCOMYCIN 2 GM in IV NORMAL SALINE 500ML 500 ML IV ONE (12:15)
[2021-11-14] MEDS ORDERED: IV NORMAL SALINE 500ML 500 ML ONE (12:26)
[2021-11-14] MEDS ORDERED: VANCOMYCIN 1 GM VIAL. ONE (12:26)
--- NOTE | 2021-11-14 12:35 | PHYS DOC ---
Past History Past Medical History: Cancer, GERD, High Cholesterol, Heart Disease Additional Past Medical Histor: back pain Past Surgical History: Angioplasty, Cancer Surgery, Knee Replacement Smoking: Cigarettes Alcohol Use: None Drug Use: None General Adult EDM: Chief Complaint: Swollen scrotum HPI: HPI: 50-year-old male presents with swollen left scrotum. The patient states that this started off with a M&M size area of redness that has expanded significantly over the last several days. He now has extremely tender left groin and left sc rotum. It is very sensitive to the touch. It is erythematous. The patient is on 2 different oral antibiotics from his primary physician for cellulitis. Patient denies fever or chills. He has no other specific complaints at this time. Review of Systems: Review of Systems: Constitutional: Denies fever or chills Eyes: Denies change in visual acuity HENT: Denies nasal congestion or sore throat Respiratory: Denies cough or shortness of breath Cardiovascular: Denies chest pain or edema GI: Denies abdominal pain, nausea, vomiting, bloody stools or diarrhea : Swollen and painful left scrotum Musculoskeletal: Denies back pain or joint pain Integument: Cellulitis left scrotum Neurologic: Denies headache, focal weakness or sensory changes Endocrine: Denies polyuria or polydipsia Lymphatic: Denies swollen glands Psychiatric: Denies depression or anxiety Current Medications: Current Meds: Current Medications Medications (Trade) Dose Ordered Sig/Radha Start Time Stop Time Status Last Admin Dose Admin Cefazolin Sodium/ Dextrose 50 ml @ 100 mls/hr 1X ONCE 11/14/21 12:11/14/21 12:44 Cancel Hydromorphone HCl (Dilaudid) 1 mg 1X ONCE 11/14/21 12:15 11/14/21 12:16 DC Iohexol (Omnipaque 300 Mg/ml) 75 ml 1X ONCE 11/14/21 10:30 11/14/21 10:31 DC 11/14/21 10:45 75 ML Ondansetron HCl (Zofran) 4 mg 1X ONCE 11/14/21 11:15 11/14/21 11:16 DC 11/14/21 11:13 4 MG Sodium Chloride 500 ml @ As Directed STK-MED ONCE 11/14/21 12:26 11/14/21 12:26 DC Vancomycin HCl (Vancomycin) 1 gm STK-MED ONCE 11/14/21 12:26 11/14/21 12:26 DC Vancomycin HCl 2 gm/Sodium Chloride 500 ml @ 250 mls/hr 1X ONCE 11/14/21 12:15 11/14/21 14:14 Allergies: Allergies: Allergies Coded Allergies Type Severity Reaction Last Updated Verified Penicillins Allergy Severe anaphylaxis 10/09/20 Yes Physical Exam: PE: Constitutional: Well developed, well nourished, morbidly obese, in pain, non- toxic appearance. [] HENT: Normocephalic, atraumatic, bilateral external ears normal, oropharynx moist, no oral exudates, nose normal. [] Eyes: PERRLA, EOMI, conjunctiva normal, no discharge. [] Neck: Normal range of motion, no tenderness, supple, no stridor. [] Cardiovascular: Heart rate regular rhythm, no murmur [] Lungs & Thorax: Bilateral breath sounds clear to auscultation [] Abdomen: Bowel sounds normal, soft, no tenderness, no masses, no pulsatile masses. [] Skin: Cellulitis of the left scrotum with swelling and tenderness. Unable to fully assess for abscess due to patient's pain with palpation. [] Back: No tenderness, no CVA tenderness. [] Extremities: No tenderness, no cyanosis, no clubbing, ROM intact, no edema. [] Neurologic: Alert and oriented X 3, normal motor function, normal sensory function, no focal deficits noted. [] Psychologic: Affect normal, judgement normal, mood anxious. [] Current Patient Data: Labs: Laboratory Tests Test 11/14/21 10:38 11/14/21 10:39 White Blood Count 8.9 x10^3/uL (4.0-11.0) Red Blood Count 5.71 x10^6/uL (4.30-5.70) H Hemoglobin 17.1 g/dL (13.0-17.5) Hematocrit 49.9 % (39.0-53.0) Mean Corpuscular Volume 87 fL (79-100) Mean Corpuscular Hemoglobin 30 pg (25-35) Mean Corpuscular Hemoglobin Concent 34 g/dL (31-37) Red Cell Distribution Width 14.2 % (11.5-14.5) Platelet Count 185 x10^3/uL (140-400) Neutrophils (%) (Auto) 83 % (31-73) H Lymphocytes (%) (Auto) 11 % (24-48) L Monocytes (%) (Auto) 4 % (0-9) Eosinophils (%) (Auto) 1 % (0-3) Basophils (%) (Auto) 1 % (0-3) Neutrophils # (Auto) 7.4 x10^3uL (1.8-7.7) Lymphocytes # (Auto) 1.0 x10^3/uL (1.0-4.8) Monocytes # (Auto) 0.4 x10^3/uL (0.0-1.1) Eosinophils # (Auto) 0.1 x10^3/uL (0.0-0.7) Basophils # (Auto) 0.0 x10^3/uL (0.0-0.2) Sodium Level 133 mmol/L (136-145) L Potassium Level 4.2 mmol/L (3.5-5.1) Chloride Level 95 mmol/L (98-107) L Carbon Dioxide Level 27 mmol/L (21-32) Anion Gap 11 (6-14) Blood Urea Nitrogen 11 mg/dL (8-26) Creatinine 1.3 mg/dL (0.7-1.3) Estimated GFR (Cockcroft-Gault) 58.4 BUN/Creatinine Ratio 8 (6-20) Glucose Level 389 mg/dL (70-99) H Lactic Acid Level 2.6 mmol/L (0.4-2.0) H Calcium Level 8.5 mg/dL (8.5-10.1) Total Bilirubin 0.8 mg/dL (0.2-1.0) Aspartate Amino Transferase (AST) 18 U/L (15-37) Alanine Aminotransferase (ALT) 32 U/L (16-63) Alkaline Phosphatase 88 U/L (46-116) Total Protein 7.0 g/dL (6.4-8.2) Albumin 3.5 g/dL (3.4-5.0) Albumin/Globulin Ratio 1.0 (1.0-1.7) SARS-CoV-2 Antigen (Rapid) Negative (NEGATIVE) Vital Signs: Vital Signs Date Time Temp Pulse Resp B/P (MAP) Pulse Ox O2 Delivery O2 Flow Rate FiO2 11/14/21 11:30 94 11/14/21 11:27 Nasal Cannula 2.0 11/14/21 10:10 85 18 140/71 (94) 11/14/21 09:38 98.6 EKG: EKG: [] Radiology/Procedures: Radiology/Procedures: [] Impressions: CLINICAL HISTORY: Reason: swelling left scrotum COMPARISON: None available. TECHNIQUE: Ultrasound images of the scrotum was performed with delgado-scale and color doppler. FINDINGS: The right testis measures 3.9 x 2.6 x 2.9. The left testis measures 3.4 x 2.9 x 2.1. There is no intratesticular abnormality. Testicular vascularity is symmetric and within normal limits. There is a 9 mm simple cyst in right epididymis and 1 cm simple cyst in the left epididymis. Bilateral small hydrocele is seen. No varicocele. Doppler evaluation demonstrates bilateral arterial waveforms in the testicles with the symmetric color Doppler over the testicles noted. IMPRESSION: Bilateral small hydrocele. Electronically signed by: Rei Montes MD (11/14/2021 1:34 PM) [id number] DICTATED AND SIGNED BY: REI MONTES MD DATE: 11/14/21 1331 CC: SAMANTA POTTER DO; EZRA CHAVES UT ~MTH0 0 Heart Score: C/O Chest Pain: N/A Risk Factors: Risk Factors: DM, Current or recent (<one month) smoker, HTN, HLP, family history of CAD, obesity. Risk Scores: Score 0 - 3: 2.5% MACE over next 6 weeks - Discharge Home Score 4 - 6: 20.3% MACE over next 6 weeks - Admit for Clinical Observation Score 7 - 10: 72.7% MACE over next 6 weeks - Early Invasive Strategies Course & Med Decision Making: Course & Med Decision Making Pertinent Labs and Imaging studies reviewed. (See chart for details) The patient's labs are unremarkable. His CT scan does show evidence of infection without focal abscess of the left scrotum and testicle area. I have ordered an ultrasound verify blood flow and secondarily rule out abscess. The patient appears to have failed outpatient treatment. I will admit him to the ospital for IV antibiotics. I will start him on vancomycin. The patient's penicillin allergy was over a decade ago. He did have tongue swelling at that time. No known reaction to cephalosporins or other beta-lactam's. The patient's ultrasound shows small bilateral hydroceles had no evidence of torsion. See official read for details. I will admit the patient to the hospital for IV antibiotics. I spoke with Dr. Grace and he has accepted patient for admission. [] Dragon Disclaimer: Dragon Disclaimer: This electronic medical record was generated, in whole or in part, using a voice recognition dictation system. Departure Departure: Impression: Primary Impression: Cellulitis of scrotum Disposition: ADMITTED INPATIENT Admitting Physician: Cipriano Grace Condition: STABLE Referrals: EZRA CHAVES (PCP) SAMANTA POTTER DO Nov 14, 2021 12:35
[2021-11-14] MEDS ORDERED: diphenhydrAMINE 50 MG/ML VIAL IVP ONE (13:30)
--- NOTE | 2021-11-14 13:36 | RAD ---
CLINICAL HISTORY: Reason: swelling left scrotum COMPARISON: None available. TECHNIQUE: Ultrasound images of the scrotum was performed with delgado-scale and color doppler. FINDINGS: The right testis measures 3.9 x 2.6 x 2.9. The left testis measures 3.4 x 2.9 x 2.1. There is no intratesticular abnormality. Testicular vascularity is symmetric and within normal limit s. There is a 9 mm simple cyst in right epididymis and 1 cm simple cyst in the left epididymis. Bilatera l small hydrocele is seen. No varicocele. Doppler evaluation demonstrates bilateral arterial waveform s in the testicles with the symmetric color Doppler over the testicles noted. IMPRESSION: Bilateral small hydrocele. Electronically signed by: Stephon Montes MD (11/14/2021 1:34 PM) [id number]
[2021-11-14] MEDS ORDERED: HYDROmorphone PF 1 MG/ML DISP.SYRIN IV PRN (14:00)
[2021-11-14] MEDS ORDERED: ONDANSETRON PF 4 MG/2 ML VIAL. IVP PRN (14:00)
[2021-11-14 15:31] VITALS: BP 139/82
[2021-11-14] MEDS ORDERED: ALBUTEROL SULFATE 2.5 MG/3 ML NEBU. IH PRN (16:45)
[2021-11-14] MEDS ORDERED: VANCOMYCIN PER PHARMACY MC PRN (17:00)
[2021-11-14] MEDS ORDERED: DEXTROSE 50% 25 GM / 50ML DISP.SYRIN. IV PRN (17:00)
[2021-11-14] MEDS ORDERED: INSULIN LISPRO 300 UNITS/3 ML VIAL. SQ SCH (17:00)
--- NOTE | 2021-11-14 17:31 | NUR ---
Pharmacy Vancomycin Dosing Note S:Consulted to monitor and dose vancomycin started 11/14/21. O:TARUN COVARRUBIAS is a 50 year old M with Cellulitis, . Height: 6 feet, 1 inches Weight: 145.4 kg [place] Body Weight: 79.90 Adjusted Body Weight: 106.10 Dosing Weight: Actual Other Antibiotics: MERREM 1GM IV Q8HR LABS: Last BUN: 11 Last Creatinine: 1.3 Creatinine Clearance: 102.02 Last WBC: 8.9 Vancomycin Dosing: Loading Dose: 2000 mg x1 Dosing Weight: Actual Target Trough: 10-20 A: Based on: Actual weight, reanl function, and indication P: 1. Begin Vancomycin 2000 mg IV q12h 2. Follow up Trough level on 11/15/21 at 2230 3. Pharmacy will continue to monitor, follow and adjust therapy as needed. SRINIVASA SANDHU, 11/14/21 0084
--- NOTE | 2021-11-14 17:44 | HP ---
DATE OF SERVICE: 11/14/2021 ADMIT DATE: 11/14/2021 HISTORY OF PRESENT ILLNESS: The patient is a 50-year-old male patient who came to the Emergency Room with painful, red and swollen left scrotum. He stated that he was seen by his primary care physician, Lenin Britt, and was started on doxycycline; however, he developed what looked like a boil, that was incised and drained on 11/11/2021 at the Emergency Room and in fact, the abscess was in the left thigh area and he was discharged home on a course of Bactrim-DS. However, he apparently developed what seems to be a small area of redness that expanded significantly over the last several days despite treatment with 2 antibiotics and it has become extremely tender, involving the left groin and left scrotum and very sensitive to touch, it is erythematous and despite 2 different antibiotics, the erythema and the pain has worsened and therefore, he presented to the Emergency Room for further evaluation and treatment. He was extensively investigated in the Emergency Room and has had lab work as well as imaging studies. His lab work showed his white cell count was 8900. His chemistry was remarkable for hyperglycemia and mild lactic acidosis. He had had a CT scan of the abdomen, which showed that the patient has erythema around the left testicle with no abscess identified. The scrotal ultrasound will be helpful if there is concern about the testicular vascularity. He has mild to moderate splenomegaly, bilateral small fat-containing inguinal hernias and hypodense heterogeneous lesion in the left lower pole of the left kidney. Renal ultrasound with followup is recommended to rule out a solid component. He has had a testicular ultrasound, which basically showed there is no intratesticular abnormality. The right testis measures 3.9 x 2.6 x 2.9 and the left testis measures 3.4 x 2.9 x 2.1. Testicular vascularity is symmetrical and within normal limits. There is a 9 mm simple cyst in the right epididymis and a 1 cm simple cyst in the left epididymis. Bilateral small hydroceles are seen. No varicocele, and Doppler evaluation demonstrates bilateral arterial waveforms in the testicles with symmetric color Doppler over the testes noted. The patient was admitted with diagnosis of cellulitis that is involving the scrotum and also the left groin area. He was started on vancomycin, IS ALLERGIC TO PENICILLIN. PAST MEDICAL HISTORY: Significant for hypertension, type 2 diabetes mellitus, hyperlipidemia, coronary artery disease, multiple TIAs, chronic obstructive pulmonary disease, morbid obesity, obstructive sleep apnea on CPAP, and osteoarthritis. PAST SURGICAL HISTORY: Significant for left heart catheterization twice and left knee surgery. ALLERGIES: HE IS ALLERGIC TO PENICILLIN. MEDICATIONS: He is currently on sulfamethoxazole trimethoprim 1 tablet twice a day, albuterol sulfate 2 puffs every 4-6 hours, baclofen 10 mg twice a day, simvastatin 20 mg at bedtime, lisinopril 40 mg once a day, aspirin 81 mg once a day, naproxen sodium 550 mg twice a day, hydrocodone/APAP 7.5/325 one tablet every 6 hours. He is on furosemide 40 mg once a day, fluticasone/salmeterol for Advair Diskus 100/50 one puff twice a day, omeprazole 20 mg daily. FAMILY HISTORY: He has 1 brother who at age of 32 in an accident. His father at the age of 59 because of lung cancer. Mother at the age of 66 because of lung cancer. SOCIAL HISTORY: He is , has 3 sons and 2 girls. He smokes 10 cigarettes a day. He does not drink alcohol or use recreational drugs. He is currently on disability. REVIEW OF SYSTEMS: As per history of present illness. PHYSICAL EXAMINATION: GENERAL: On arrival to the Emergency Room, he looked well and was clearly in no apparent respiratory distress. No pallor, jaundice, cyanosis, or thyromegaly. No jugular venous distention. No lower limb edema. VITAL SIGNS: His heart rate was 94, blood pressure was 146/95, temperature was 98.6, respiratory rate 22, and oxygen saturation was 94%. HEAD, EYES, EARS, NOSE, AND THROAT: Showed normocephalic, atraumatic. NECK: Supple. HEART: Showed normal first and second heart sounds. No gallop, rub, or murmur. CHEST: Clear to auscultation. No crepitation or rhonchi. ABDOMEN: Distended, soft, nontender. NEUROLOGIC: He is grossly intact. SKIN: His left scrotum compared to the right is markedly erythematous, tender with the involvement of the left groin and the upper part of the left thigh area. LABORATORY DATA: His lab work showed a white cell count of 8900, hemoglobin 17.1, hematocrit 49.9, MCV 87, and a platelet count of 185,000. His chemistry, his serum sodium was 133, potassium 4.2, chloride 95, bicarbonate 27, anion gap of 11, BUN 11, creatinine 1.3. Estimated GFR was 58 mL per minute. His glucose was 389. Lactic acid was 2.6, calcium was 8.5. Total bilirubin, AST, ALT, alkaline phosphatase were normal. Total protein was 7 and albumin was 3.5. ASSESSMENT AND PLAN: This is a 50-year-old male patient who presented with cellulitis of the left side of the scrotum, left groin and upper part of the left thigh. He has failed outpatient oral antibiotic therapy with doxycycline and Bactrim; and therefore, the patient will be continued on IV vancomycin and I will reconcile all his medications. I do not see that he is on any medication for his diabetes that seemed to be extremely poorly controlled and he might require a midline or a PICC line. LULA DR: Hung TID: [id number]
[2021-11-14] MEDS ORDERED: TIOT4MIS5 IH (18:14)
[2021-11-14 18:29] VITALS: BP 143/84
[2021-11-14] MEDS ORDERED: EMPA25TA PO (18:30)
[2021-11-14] MEDS ORDERED: GABA-586 PO (18:30)
[2021-11-14] MEDS ORDERED: SUCR1TAB PO (18:31)
[2021-11-14] MEDS ORDERED: BUDESONIDE 0.5 MG/2 ML NEBU NEB SCH (20:00)
[2021-11-14] MEDS ORDERED: ALBUTEROL SULFATE 2.5 MG/3 ML NEBU. NEB SCH (20:00)
--- NOTE | 2021-11-14 20:22 | NUR ---
Discharge note Pt left AMA at 2021 Pt was given information about his COVID + Test result and COVID discharge instructions. Pt was educated on Risks of leaving AMA however pt insisted on Leaving against medical advice. Pt was escorted out of building
[2021-11-14] MEDS ORDERED: NON FORMULARY ITEM (Fluticasone/Salmeterol (Advair 100-50 Diskus) 1 PUFF) IH SCH (21:00)
[2021-11-14] MEDS ORDERED: BACLOFEN 10 MG TABLET PO SCH (21:00)
[2021-11-14] MEDS ORDERED: SIMVASTATIN 20 MG TABLET PO SCH (21:00)
[2021-11-14] MEDS ORDERED: MEROPENEM 1 GM in IV NORMAL SALINE 100ML 100 ML IV SCH (22:00)
[2021-11-14] MEDS ORDERED: VANCOMYCIN 2 GM in IV NORMAL SALINE 500ML 500 ML IV SCH (23:00)
[2021-11-15] MEDS ORDERED: PANTOPRAZOLE 40 MG TABLET. PO SCH (09:00)
[2021-11-15] MEDS ORDERED: LISINOPRIL 20 MG TABLET PO SCH (09:00)
[2021-11-15] MEDS ORDERED: ASPIRIN ENTERIC COATED 81 MG TABLET.DR. PO SCH (09:00)
== END 2021-11-14 20:25 | disposition left against medical advice (07) | DRG 727 ==
LOC: ER 09:17 → 1 SOUTH 13:59
PROVIDERS: ADMIT Internal Medicine; ATTEND Internal Medicine
DX: N49.2 Inflammatory disorders of scrotum (principal); U07.1 COVID-19; Z68.41 Body mass index [BMI] 40.0-44.9, adult; I10 Essential (primary) hypertension; E78.00 Pure hypercholesterolemia, unspecified; E78.5 Hyperlipidemia, unspecified; K21.9 Gastro-esophageal reflux disease without esophagitis; G47.33 Obstructive sleep apnea (adult) (pediatric); E66.01 Morbid (severe) obesity due to excess calories; M19.90 Unspecified osteoarthritis, unspecified site; Z96.659 Presence of unspecified artificial knee joint; J44.9 Chronic obstructive pulmonary disease, unspecified; I25.10 Atherosclerotic heart disease of native coronary artery without angina pectoris; F17.210 Nicotine dependence, cigarettes, uncomplicated; Z53.29 Procedure and treatment not carried out because of patient's decision for other reasons; E11.65 Type 2 diabetes mellitus with hyperglycemia; Z88.0 Allergy status to penicillin; Z86.73 Personal history of transient ischemic attack (TIA), and cerebral infarction without residual deficits; Z80.1 Family history of malignant neoplasm of trachea, bronchus and lung
CPT/HCPCS: 36415; 74177; 76870; 80053; 82947; 83605; 85025; 87040; 87426; 96361; 96374; 96375; J1170; J1200; J1815; J2405; J3370; J7040; Q9967; U0003; 99285-25; J7030

== ENCOUNTER → 2021-12-09 | Outpatient (CLI) | payer OTHER ==
[2021-11-14 18:29] VITALS: BP 143/84
[~2021-12-09] MED LIST changes: +EMPA25TA PO; +GABA-586 PO; +SUCR1TAB PO; +TIOT4MIS5 IH
--- NOTE | 2021-12-09 11:57 | RAD ---
EXAM: Renal sonogram. HISTORY: Renal lesion. TECHNIQUE: Magnetic imaging of the kidneys and bladder was performed. COMPARISON: CT dated 11/14/2021. FINDINGS: The exam is limited due to bowel gas and body habitus. The kidneys are normal in size. The recently demonstrated lesion of concern involving the the left kidney is not seen sonographically. Th ere is no hydronephrosis. The ureteral jets are not seen during the exam. The prevoid bladder volume is 92 cc. The aorta and inferior vena cava are obscured. There is incidental hepatic steatosis. IMPRESSION: 1. Limited exam due to body habitus and bowel gas. The recently demonstrated lesion of concern involv ing the lower pole the left kidney is not seen. This remains indeterminant. There are additional susp ected cysts on the CT which are also sonographically occult. 2. No acute sonographic finding. 3. Incidental hepatic steatosis. Electronically signed by: Domonique Rubalcava MD (12/09/2021 11:54 AM) [id number]
== END ==
LOC: US 11:03
PROVIDERS: ATTEND Physician Assistant
DX: K76.0 Fatty (change of) liver, not elsewhere classified (principal); N28.9 Disorder of kidney and ureter, unspecified
CPT/HCPCS: 76770

== ENCOUNTER 2022-02-16 11:08 | Emergency (ER) | payer OTHER ==
[~2022-02-16] VITALS: Ht 185.4 cm; Wt 145.4 kg
[~2022-02-16 11:08] MED LIST changes: -EMPA25TA PO; +EMPA25TA3 PO
[2022-02-16 11:17] VITALS: BP 138/93
[2022-02-16] MEDS: LIDOCAINE 1% Multi-Dose 20 ML VIAL. IJ ONE (11:45)
[2022-02-16] MEDS: CLINDAMYCIN HCL 150 MG CAPSULE PO ONE (12:15)
[2022-02-16] MEDS ORDERED: CLIN150C16 PO (12:23)
--- NOTE | 2022-02-16 12:24 | PHYS DOC ---
Past History Past Medical History: Cancer, GERD, High Cholesterol, Heart Disease Additional Past Medical Histor: back pain (MONICA ECHOLS APRN) Past Surgical History: Angioplasty, Cancer Surgery, Knee Replacement (MONICA ECHOLS APRN) Smoking: Cigarettes Alcohol Use: None Drug Use: None (MONICA ECHOLS APRN) General Adult EDM: Chief Complaint: SKIN RASH/ABSCESS HPI: HPI: Patient is a 51-year-old male who presents to the emergency department today for an abscess to his left inner thigh that occurred 1 week ago. Patient reports he had some doxycycline at home leftover prescribed by Dr. Chaves and he started taking that. Patient reports that he has a history of abscess in that area. He reports that he has been trying to pop it and applying peroxide. Patient denies any fever, nausea, vomiting. He reports that his tetanus is up-to-date. (MONICA ECHOLS APRN) Review of Systems: Review of Systems: Constitutional: See HPI GI: See HPI Integument: HPI (MONICA ECHOLS APRN) Current Medications: Current Meds: Current Medications Medications (Trade) Dose Ordered Sig/Radha Start Time Stop Time Status Last Admin Dose Admin Clindamycin HCl (Cleocin) 450 mg 1X ONCE 02/16/22 12:15 02/16/22 12:16 Lidocaine HCl 20 ml 1X ONCE 02/16/22 11:45 02/16/22 11:46 DC (MONICA ECHOLS APRN) Allergies: Allergies: Allergies Coded Allergies Type Severity Reaction Last Updated Verified Penicillins Allergy Severe anaphylaxis 10/09/20 Yes (MONICA ECHOLS APRN) Physical Exam: PE: Constitutional: Well developed, well nourished, no acute distress, non-toxic appearance. [] HENT: Normocephalic, atraumatic, bilateral external ears normal, oropharynx moist, no oral exudates, nose normal. [] Eyes: PERRL, EOMI, conjunctiva normal, no discharge. [] Neck: Normal range of motion, no stridor Cardiovascular: Normal peripheral perfusion Lungs & Thorax: No work of breathing, no tachypnea Abdomen: Soft and obese Skin: Warm, dry, no erythema, no rash. [] 5Centimeter abscess noted to patient's left inner thigh without any drainage, mild surrounding redness and warmth Back: N normal range of motion Extremities: No tenderness, no cyanosis, no clubbing, ROM intact, no edema. [] Neurologic: Alert and oriented X 3, normal motor function, normal sensory funct ion, no focal deficits noted. [] Psychologic: Affect normal, judgement normal, mood normal. [] (MONICA ECHOLS APRN) Current Patient Data: Vital Signs: Vital Signs Date Time Temp Pulse Resp B/P (MAP) Pulse Ox O2 Delivery O2 Flow Rate FiO2 02/16/22 11:17 98.4 100 22 138/93 (108) 100 Room Air (MONICA ECHOLS APRN) EKG: EKG: [] (MONICA ECHOLS APRN) Radiology/Procedures: Radiology/Procedures: [] (MONICA ECHOLS APRN) Heart Score: C/O Chest Pain: N/A Risk Factors: Risk Factors: DM, Current or recent (<one month) smoker, HTN, HLP, family history of CAD, obesity. Risk Scores: Score 0 - 3: 2.5% MACE over next 6 weeks - Discharge Home Score 4 - 6: 20.3% MACE over next 6 weeks - Admit for Clinical Observation Score 7 - 10: 72.7% MACE over next 6 weeks - Early Invasive Strategies (MONICA ECHOLS APRN) Course & Med Decision Making: Course & Med Decision Making Pertinent Labs and Imaging studies reviewed. (See chart for details) [] Patient presents to the emergency department for an abscess to his left thigh. There is an area of auctions to this area that requires incision and drainage. Abscess was cleansed with Betadine, lidocaine was used, incision and drainage performed with serosanguineous drainage. Presented Telfa dressing applied. Patient educated on dressing changes and wound care. Is to apply warm compresses. Advised to wash with warm water and mild soap. Advised to monitor for worsening of infection. I discussed with patient all findings and d iagnostic testing as well as the need to follow-up with PCP for further evaluation and treatment or return to the ER if any new or worsening symptoms. Strict return precautions were also discussed at length. Patient voiced understanding and agreement with the plan. Patient is hemodynamically stable at the time of disposition. (MONICA ECHOLS APRN) Course & Med Decision Making Did not see patient. Did not discuss patient with [employer]RIC AWNING REPAIRER. Generally agree with FABRIC AWNING REPAIRER's work-up and disposition per note (ALEKSEY LOPEZ MD) Dragon Disclaimer: Dragon Disclaimer: This electronic medical record was generated, in whole or in part, using a voice recognition dictation system. (MONICA ECHOLS APRN) Incision and Drainage Indication: Abscess left inner thigh Procedure: The patient was positioned appropriately and the skin over the incision site was Betadine. Local anesthesia was 1% lidocaine. An incision was then made over the apex of the abscess and large amount of serosanguineous material was expressed. Loculations were expressed. The patients tetanus status was up-to-date The patient tolerated the procedure Complications: None (MONICA ECHOLS APRN) Departure Departure: Impression: Primary Impression: Abscess of left thigh Disposition: HOME / SELF CARE / HOMELESS Condition: GOOD Referrals: EZRA CHAVES (PCP) Patient Instructions: Abscess Additional Instructions: You are seen in the emergency department today for an abscess to your thigh. This was incised and drained in the emergency department. Please keep a nonadherent dressing taped on 3 sides to the area. Please clean this dressing twice a day and when soiled. The abscess may continue to drain at home. You can apply warm compresses to the area to help with drainage. Please keep the area clean with warm water and mild soap. Do not use any peroxide and do not try to pop the abscess any further. You are being discharged home with an antibiotic please make sure you start and finish it completely. You can discontinue the doxycycline that you were taking. Take Tylenol and ibuprofen for any pain. Monitor your site for any worsening of the infection which include increased redness, warmth, swelling, drainage, pain. I would advise you to follow-up with your primary care provider in 2 days for wound recheck. Return to the emergency department if you develop worsening of your infection as evidenced by the symptoms stated above, high fevers refractory to treatment, intractable nausea or vomiting. Scripts Clindamycin Hcl (CLINDAMYCIN HCL) 150 Mg Capsule 450 MG PO TID for abscess for 7 Days, #63 CAP 0 Refills Prov: MONICA ECHOLS APRN 02/16/22 MONICA ECHOLS APRN Feb 16, 2022 12:24 ALEKSEY LOPEZ MD Feb 16, 2022 13:14
[2022-02-16] MEDS: HYDROcodone/APAP 5/325MG 1 TAB TABLET PO ONE (12:45)
== END 2022-02-16 12:47 | disposition home or self-care (01) ==
LOC: ER 11:08
DX: L02.416 Cutaneous abscess of left lower limb (principal); K21.9 Gastro-esophageal reflux disease without esophagitis; E78.00 Pure hypercholesterolemia, unspecified; F17.210 Nicotine dependence, cigarettes, uncomplicated; Z88.0 Allergy status to penicillin
CPT/HCPCS: 10060; 99283

== ENCOUNTER → 2022-02-17 | Outpatient (CLI) | payer OTHER ==
[2022-02-16 11:17] VITALS: BP 138/93
[~2022-02-17] MED LIST changes: +CLIN150C16 PO
--- NOTE | 2022-02-17 11:01 | RAD ---
Bilateral lower extremity arterial duplex ultrasound. Pain in bilateral feet. Hypertension. Significant smoking history. History of nicotine dependence. Comparison: None. Procedure: Arterial 2D and duplex images are obtained of the lower extremity arteries. Findings: Normal triphasic waveforms are present in the common femoral artery, superficial femoral ar taurus, popliteal artery, anterior tibial artery, posterior tibial artery and dorsalis pedis artery. Po pliteal fossa cyst noted on the left. IMPRESSION: No sonographic evidence of hemodynamically significant stenosis involving the major arter ies of the bilateral lower extremities Electronically signed by: Cyrus Jaquez MD (02/17/2022 10:58 AM) [id number]
== END ==
LOC: US 09:15
PROVIDERS: ATTEND Physician Assistant
DX: M71.22 Synovial cyst of popliteal space [Baker], left knee (principal); I25.119 Atherosclerotic heart disease of native coronary artery with unspecified angina pectoris; M79.671 Pain in right foot; M79.672 Pain in left foot
CPT/HCPCS: 93925

== ENCOUNTER 2022-03-03 11:20 | Emergency (ER) | payer OTHER ==
[~2022-03-03] VITALS: Ht 185.4 cm; Wt 149.0 kg
[2022-03-03 11:43] VITALS: BP 140/80
[2022-03-03] MEDS ORDERED: LIDOCAINE 1% Multi-Dose 20 ML VIAL. IJ ONE (11:45)
[2022-03-03] MEDS ORDERED: CLIN150C16 PO (12:03)
--- NOTE | 2022-03-03 12:03 | PHYS DOC ---
Past History Past Medical History: Cancer, GERD, High Cholesterol, Heart Disease Additional Past Medical Histor: back pain Past Surgical History: Angioplasty, Cancer Surgery, Knee Replacement Smoking: Cigarettes Alcohol Use: None Drug Use: None General Adult EDM: Chief Complaint: ABSCESS HPI: HPI: Patient is a 51-year-old male who presents to the emergency department today for an abscess to his left inner thigh that has been going on for several months. Patient reports that he has seen his primary care provider who is discharged him with doxycycline followed by clindamycin. Patient reports that his dose of clindamycin was 150 mg 3 times daily. He denies fevers, chills, nausea, vomiting. Review of Systems: Review of Systems: Constitutional: See HPI GI: See HPI Musculoskeletal: See HPI Integument: See HPI Current Medications: Current Meds: Current Medications Medications (Trade) Dose Ordered Sig/Radha Start Time Stop Time Status Last Admin Dose Admin Lidocaine HCl 20 ml 1X ONCE 03/03/22 11:45 03/03/22 11:46 DC Allergies: Allergies: Allergies Coded Allergies Type Severity Reaction Last Updated Verified Penicillins Allergy Severe anaphylaxis 10/09/20 Yes Physical Exam: PE: Constitutional: Well developed, well nourished, no acute distress, non-toxic appearance. [] HENT: Normocephalic, atraumatic, bilateral external ears normal, oropharynx moist, no oral exudates, nose normal. [] Eyes: PERRL, EOMI, conjunctiva normal, no discharge. [] Neck: Normal range of motion, no stridor Cardiovascular: Normal peripheral perfusion Lungs & Thorax: Normal work of breathing, no tachypnea Abdomen: Obese and soft Skin: Warm, dry, 4 cm abscess noted to patient's left inner thigh there is no surrounding redness or warmth to the area. Back: Normal range of motion Extremities: No tenderness, no cyanosis, no clubbing, ROM intact, no edema. [] Neurologic: Alert and oriented X 3, normal motor function, normal sensory function, no focal deficits noted. [] Psychologic: Affect normal, judgement normal, mood normal. [] Current Patient Data: Vital Signs: Vital Signs Date Time Temp Pulse Resp B/P (MAP) Pulse Ox O2 Delivery O2 Flow Rate FiO2 03/03/22 11:43 98.1 80 20 140/80 (100) 100 EKG: EKG: [] Radiology/Procedures: Radiology/Procedures: [] Heart Score: C/O Chest Pain: N/A Risk Factors: Risk Factors: DM, Current or recent (<one month) smoker, HTN, HLP, family history of CAD, obesity. Risk Scores: Score 0 - 3: 2.5% MACE over next 6 weeks - Discharge Home Score 4 - 6: 20.3% MACE over next 6 weeks - Admit for Clinical Observation Score 7 - 10: 72.7% MACE over next 6 weeks - Early Invasive Strategies Course & Med Decision Making: Course & Med Decision Making Pertinent Labs and Imaging studies reviewed. (See chart for details) [] Patient resents to the emergency department for an abscess to his left inner thigh. Patient does have an area of fluctuance which was incised and drained. Patient tolerated procedure. Dressing was placed. Patient will be discharged home on clindamycin, is unsure if patient was taking the appropriate dose of clindamycin as he states that it was 150 mg 3 times daily x7 days. Patient advised to follow-up with his primary care provider and dermatology as previously scheduled. I discussed with patient all findings and diagnostic testing as well as the need to follow-up with PCP for further evaluation and treatment or return to the ER if any new or worsening symptoms. Strict return precautions were also discussed at length. Patient voiced understanding and agreement with the plan. Patient is hemodynamically stable at the time of disposition. Zurdo Disclaimer: Zurdo Disclaimer: This electronic medical record was generated, in whole or in part, using a voice recognition dictation system. Incision and Drainage Indication: abscess inner left thigh Procedure: The patient was positioned appropriately and the skin over the incision site was [Betadine. Local anesthesia was sent lidocaine an incision was then made over the apex of the abscess I and large amount of purulent material was expressed. Loculations were removed the drainage cavity was then left open to drain the patients tetanus status up-to-date The patient tolerated the procedure Complications: None Departure Departure: Impression: Primary Impression: Abscess of left thigh Disposition: HOME / SELF CARE / HOMELESS Condition: GOOD Referrals: EZRA CHAVES (PCP) Patient Instructions: Abscess, Abscess, Care After Additional Instructions: You are seen in the emergency department today for an abscess. This was drained in the emergency department. Please keep this area clean and dry. Keep the dressing in place and change it twice a day and when soiled. Take Tylenol and ibuprofen for your pain. You can continue to apply warm compresses to the area to help with drainage. You are being discharged home with an antibiotic. Please start and finish it completely. Monitor for any worsening of the infection as evidenced by increased redness, swelling, drainage or pain. Please follow-up with your primary care provider tomorrow regarding your ER visit. If you require dermatology referral you can follow-up with [facility] dermatology in [place] by calling [phone]. As we discussed, you can also contact your insurance to see which dermatology clinic is covered. Return to the emergency department if you develop worsening of your infection, high fevers refractory to treatment, intractable nausea or vomiting. Scripts Clindamycin Hcl (CLINDAMYCIN HCL) 150 Mg Capsule 450 MG PO TID for abscess for 7 Days, #63 CAP 0 Refills Prov: MONICA ECHOLS APRN 03/03/22 MONICA ECHOLS APRN Mar 03, 2022 12:03
== END 2022-03-03 12:10 | disposition home or self-care (01) ==
LOC: ER 11:20
DX: L02.416 Cutaneous abscess of left lower limb (principal); K21.9 Gastro-esophageal reflux disease without esophagitis; E78.00 Pure hypercholesterolemia, unspecified; F17.210 Nicotine dependence, cigarettes, uncomplicated; Z88.0 Allergy status to penicillin
CPT/HCPCS: 10060; 99283